=== PATIENT | male | born 2000 | race Caucasian/White ===

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

== ENCOUNTER 2018-04-02 08:00 | Inpatient (IN) | payer OTHER ==
[2018-04-02] MEDS: NS 1,000 ML IV ×3 (08:46→10:01)
[2018-04-02] MEDS: ONDANSETRON 4MG/2ML VIAL (J2405) IV (09:01)
[2018-04-02 09:02] LABS: VENOUS BASE EXCESS -28.2 (-2.0-2.0); VENOUS HCO3 3.5 MEQ/L (23.0-27.0); VENOUS O2 SATURATION 95.6 % (60.0-80.0); VENOUS PARTIAL PRESSURE CO2 17.7 mmHg (38.0-50.0); VENOUS PARTIAL PRESSURE O2 96.6 mmHg (30.0-50.0); VENOUS PH 6.908 UNITS (7.330-7.430); VENOUS STANDARD HCO3 6.2 MEQ/L
[2018-04-02 09:19] LABS: BASO # 0.1 10^3/uL (0.0-0.2); BASO % 0.8 % (0.0-1.0); HEMATOCRIT 45.8 % (42.0-52.0); HEMOGLOBIN 15.3 g/dl (13.5-17.5); IMMATURE GRANULOCYTE % 0.9 % (0-3.0); LYMPH # 2.1 10^3/uL (1.5-6.5); LYMPH % 16.4 % (24.0-44.0); MEAN CORPUSCULAR HEMOGLOBIN 30.9 pg (27.0-33.0); MEAN CORPUSCULAR HGB CONC 33.4 g/dl (32.0-36.5); MEAN CORPUSCULAR VOLUME 92.5 fl (80.0-96.0); MONO # 0.8 10^3/uL (0.0-0.8); MONO % 6.6 % (0.0-5.0); NEUTROPHILS # 9.7 10^3/uL (1.8-7.7); NEUTROPHILS % 75.3 % (36.0-66.0); PLATELET COUNT, AUTOMATED 310 10^3/uL (150-450); RED BLOOD COUNT 4.95 10^6/uL (4.30-6.10); RED CELL DISTRIBUTION WIDTH 12.9 % (11.5-14.5); WHITE BLOOD COUNT 12.8 10^3/uL (4.0-10.0)
[2018-04-02 09:22] LABS: POS COUNT POS FLAG
[2018-04-02 09:36] LABS: ALBUMIN 3.5 GM/DL (3.2-5.2); ALBUMIN/GLOBULIN RATIO 0.74 (1.00-1.93); ALKALINE PHOSPHATASE 239 U/L (45-117); ALT/SGPT 18 U/L (12-78); ANION GAP 26 MEQ/L (8-16); AST/SGOT 12 U/L (7-37); BILIRUBIN,DIRECT < 0.1 MG/DL (0.0-0.2); BILIRUBIN,TOTAL 0.4 MG/DL (0.2-1.0); BLOOD UREA NITROGEN 12 MG/DL (7-18); CALCIUM LEVEL 8.4 MG/DL (8.5-10.1); CARBON DIOXIDE LEVEL 5 MEQ/L (21-32); CHLORIDE LEVEL 104 MEQ/L (98-107); CREATININE FOR GFR 1.11 MG/DL (0.70-1.30); LIPASE 112 U/L (73-393); POTASSIUM SERUM 4.6 MEQ/L (3.5-5.1); SODIUM LEVEL 135 MEQ/L (136-145); TOTAL PROTEIN 8.2 GM/DL (6.4-8.2)
[2018-04-02] MEDS ORDERED: NS 1,000 ML IV (09:45)
[2018-04-02] MEDS: INSULIN HUMAN REGULAR 100 UNITS in NS 99 ML IV ×2 (09:48→15:36)
[2018-04-02 09:52] LABS: BEDSIDE GLUCOSE 483 MG/DL (70-105)
[2018-04-02 09:52] LABS: SALICYLATE LEVEL 5.2 MG/DL (5.0-30.0)
[2018-04-02 09:52] LABS: ETHYL ALCOHOL (ETHANOL) < 0.003 % (0.000-0.010)
[2018-04-02 09:53] LABS: GLUCOSE, FASTING 461 MG/DL (70-100)
[2018-04-02 09:54] LABS: ACETAMINOPHEN LEVEL < 2.0 UG/ML (10.0-30.0)
[2018-04-02] MEDS: METOCLOPRAMIDE INJ 10MG/2ML VIAL (J2765) IV ×2 (10:01→19:38)
[2018-04-02] MEDS ORDERED: ISOVUE-370 76% 100ML VIAL (Q9967) As Ordered (10:14)
[2018-04-02 10:41] LABS: CK-MB VALUE MASS < 1.0 NG/ML (<3.6); CPK CREATINE PHOSPHOKINASE 48 U/L (39-308); MB/CK RELATIVE INDEX 2.08 (< OR =4); TROPONIN I < 0.02 NG/ML (< 0.10)
[2018-04-02 10:47] LABS: BEDSIDE GLUCOSE 416 MG/DL (70-105)
[2018-04-02 11:25] LABS: APPEARANCE, URINE CLEAR (CLEAR); BACTERIA, URINE AUTO NEGATIVE (NEGATIVE); BILIRUBIN, URINE AUTO NEGATIVE (NEGATIVE); BLOOD, URINE BLOOD 1+ (NEGATIVE); COLOR, URINE STRAW (YELLOW); GLUCOSE, URINE (UA) AUTO 3+ mg/dL (NEGATIVE); KETONE, URINE AUTO 2+ mg/dL (NEGATIVE); LEUKOCYTE ESTERASE, URINE AUTO NEGATIVE (NEGATIVE); MUCUS, URINE SMALL (NEGATIVE); NITRITE, URINE AUTO NEGATIVE (NEGATIVE); PROTEIN, URINE AUTO 1+ mg/dL (NEGATIVE); RBC, URINE AUTO 6 /HPF (0-3); SPECIFIC GRAVITY URINE AUTO 1.022 (1.002-1.035); SQUAMOUS EPITHELIAL CELL UR AU 0 /HPF (0-6); UROBILINOGEN, URINE AUTO 0.2 mg/dL (0.0-2.0); WBC, URINE AUTO 0 /HPF (0-3)
[2018-04-02 11:46] LABS: AMPHETAMINES LEVEL URINE NEGATIVE (NEGATIVE); BARBITURATES URINE NEGATIVE (NEGATIVE); BENZODIAZEPINES URINE NEGATIVE (NEGATIVE); CANNABINOIDS URINE NEGATIVE (NEGATIVE); COCAINE METABOLITE URINE NEGATIVE (NEGATIVE); METHADONE URINE NEGATIVE (NEGATIVE); OPIATES URINE NEGATIVE (NEGATIVE); PHENCYCLIDINE URINE NEGATIVE (NEGATIVE)
[2018-04-02 12:18] LABS: BEDSIDE GLUCOSE 303 MG/DL (70-105)
[2018-04-02] MEDS: KCL 20MEQ in NS 1000ML 1,000 ML IV (13:00)
[2018-04-02 13:37] LABS: MAGNESIUM LEVEL 2.4 MG/DL (1.8-2.4)
[2018-04-02 14:08] LABS: BEDSIDE GLUCOSE 209 MG/DL (70-105)
[2018-04-02 14:43] LABS: ANION GAP 23 MEQ/L (8-16); BLOOD UREA NITROGEN 11 MG/DL (7-18); CALCIUM LEVEL 8.4 MG/DL (8.5-10.1); CARBON DIOXIDE LEVEL 5 MEQ/L (21-32); CHLORIDE LEVEL 113 MEQ/L (98-107); CREATININE FOR GFR 0.81 MG/DL (0.70-1.30); GLUCOSE, FASTING 207 MG/DL (70-100); POTASSIUM SERUM 4.1 MEQ/L (3.5-5.1); SODIUM LEVEL 141 MEQ/L (136-145)
[2018-04-02] MEDS ORDERED: INSULIN HUMAN REGULAR 100 UNITS in NS 99 ML IV (15:00)
[2018-04-02 15:05] LABS: BEDSIDE GLUCOSE 167 MG/DL (70-105)
[2018-04-02] MEDS: D5W/0.45% SODIUM CHLORIDE 1,000 ML IV (15:08)
[2018-04-02] MEDS ORDERED: INSULIN IV RATE CHANGE DOCUMENTATION ML/HR XX (15:15)
[2018-04-02 16:12] LABS: BEDSIDE GLUCOSE 198 MG/DL (70-105)
[2018-04-02] MEDS: ENOXAPARIN 40 MG/0.4 ML SYRINGE (J1650) SC (16:56)
[2018-04-02 17:03] LABS: BEDSIDE GLUCOSE 190 MG/DL (70-105)
[2018-04-02 17:23] LABS: ANION GAP 20 MEQ/L (8-16); BLOOD UREA NITROGEN 9 MG/DL (7-18); CALCIUM LEVEL 8.2 MG/DL (8.5-10.1); CARBON DIOXIDE LEVEL 6 MEQ/L (21-32); CHLORIDE LEVEL 115 MEQ/L (98-107); CREATININE FOR GFR 0.86 MG/DL (0.70-1.30); GLUCOSE, FASTING 209 MG/DL (70-100); SODIUM LEVEL 141 MEQ/L (136-145)
[2018-04-02 18:08] LABS: BEDSIDE GLUCOSE 191 MG/DL (70-105)
[2018-04-02] MEDS: KETOROLAC TROMETHAMINE 10 MG TAB PO (19:32)
[2018-04-02 19:39] LABS: BEDSIDE GLUCOSE 182 MG/DL (70-105)
[2018-04-02 20:11] LABS: BEDSIDE GLUCOSE 189 MG/DL (70-105)
[2018-04-02 20:52] LABS: BEDSIDE GLUCOSE 193 MG/DL (70-105)
[2018-04-02 21:21] LABS: ANION GAP 15 MEQ/L (8-16); BLOOD UREA NITROGEN 8 MG/DL (7-18); CALCIUM LEVEL 8.2 MG/DL (8.5-10.1); CARBON DIOXIDE LEVEL 11 MEQ/L (21-32); CHLORIDE LEVEL 111 MEQ/L (98-107); CREATININE FOR GFR 0.81 MG/DL (0.70-1.30); GLUCOSE, FASTING 197 MG/DL (70-100); SODIUM LEVEL 137 MEQ/L (136-145)
[2018-04-02] MEDS ORDERED: GLUCOSE 4 GM CHEW TABLET PO (21:45)
[2018-04-02] MEDS ORDERED: GLUCAGON FOR INJ 1 MG VIAL (J1610) SC (21:45)
[2018-04-02] MEDS ORDERED: DEXTROSE 50% 50 ML SYRINGE IV (21:45)
[2018-04-02 22:03] LABS: BEDSIDE GLUCOSE 185 MG/DL (70-105)
[2018-04-02] MEDS: KCL 20MEQ IN D5/0.45NS 1000ML 1,000 ML IV (22:14)
[2018-04-02] MEDS: POTASSIUM CHLORIDE 10 MEQ SR TABLET PO (22:15)
[2018-04-02] MEDS: LEVEMIR (INSULIN DETEMIR) 1 UNITS/0.01ML SC (22:30)
[2018-04-02 23:00] LABS: BEDSIDE GLUCOSE 198 MG/DL (70-105)
[2018-04-03] MEDS: KCL 20MEQ in NS 1000ML 1,000 ML IV
[2018-04-03 00:09] LABS: BEDSIDE GLUCOSE 185 MG/DL (70-105)
[2018-04-03 00:55] LABS: ANION GAP 11 MEQ/L (8-16); BLOOD UREA NITROGEN 7 MG/DL (7-18); CALCIUM LEVEL 8.4 MG/DL (8.5-10.1); CARBON DIOXIDE LEVEL 14 MEQ/L (21-32); CHLORIDE LEVEL 112 MEQ/L (98-107); CREATININE FOR GFR 0.81 MG/DL (0.70-1.30); GLUCOSE, FASTING 184 MG/DL (70-100); POTASSIUM SERUM 3.3 MEQ/L (3.5-5.1); SODIUM LEVEL 137 MEQ/L (136-145)
[2018-04-03] MEDS: KCL 10MEQ/100ML SWI (KRUN) 10 MEQ in APPROPRIATE DILUENT 1 EA IV ×2 (01:17→02:13)
[2018-04-03 02:20] LABS: ANION GAP 10 MEQ/L (8-16); BLOOD UREA NITROGEN 8 MG/DL (7-18); CALCIUM LEVEL 8.4 MG/DL (8.5-10.1); CARBON DIOXIDE LEVEL 14 MEQ/L (21-32); CHLORIDE LEVEL 113 MEQ/L (98-107); CREATININE FOR GFR 0.69 MG/DL (0.70-1.30); GLUCOSE, FASTING 140 MG/DL (70-100); POTASSIUM SERUM 3.8 MEQ/L (3.5-5.1); SODIUM LEVEL 137 MEQ/L (136-145)
[2018-04-03] MEDS: NS 1,000 ML IV (03:15)
[2018-04-03 05:30] LABS: HEMATOCRIT 37.8 % (42.0-52.0); MEAN CORPUSCULAR HEMOGLOBIN 30.6 pg (27.0-33.0); MEAN CORPUSCULAR HGB CONC 34.1 g/dl (32.0-36.5); MEAN CORPUSCULAR VOLUME 89.8 fl (80.0-96.0); PLATELET COUNT, AUTOMATED 288 10^3/uL (150-450); RED BLOOD COUNT 4.21 10^6/uL (4.30-6.10); RED CELL DISTRIBUTION WIDTH 13.2 % (11.5-14.5); WHITE BLOOD COUNT 7.3 10^3/uL (4.0-10.0)
[2018-04-03 05:37] LABS: ANION GAP 11 MEQ/L (8-16); BLOOD UREA NITROGEN 7 MG/DL (7-18); CALCIUM LEVEL 8.1 MG/DL (8.5-10.1); CARBON DIOXIDE LEVEL 13 MEQ/L (21-32); CHLORIDE LEVEL 116 MEQ/L (98-107); CREATININE FOR GFR 0.62 MG/DL (0.70-1.30); GLUCOSE, FASTING 115 MG/DL (70-100); POTASSIUM SERUM 3.3 MEQ/L (3.5-5.1); SODIUM LEVEL 140 MEQ/L (136-145)
[2018-04-03 05:42] LABS: HEMOGLOBIN 12.9 g/dl (13.5-17.5)
[2018-04-03] MEDS: POTASSIUM CHLORIDE 10 MEQ SR TABLET PO ×2 (06:30→14:11)
[2018-04-03] MEDS: HumaLOG INSULIN (NovoLOG) PER UNIT SC ×4 (07:48→20:32)
[2018-04-03] MEDS: ENOXAPARIN 40 MG/0.4 ML SYRINGE (J1650) SC (07:49)
[2018-04-03 09:01] LABS: FREE T4 0.79 NG/DL (0.78-1.33)
[2018-04-03 11:21] LABS: BEDSIDE GLUCOSE 324 MG/DL (70-105)
[2018-04-03 13:02] LABS: ANION GAP 13 MEQ/L (8-16); BLOOD UREA NITROGEN 10 MG/DL (7-18); CALCIUM LEVEL 8.2 MG/DL (8.5-10.1); CARBON DIOXIDE LEVEL 15 MEQ/L (21-32); CHLORIDE LEVEL 108 MEQ/L (98-107); CREATININE FOR GFR 0.75 MG/DL (0.70-1.30); GLUCOSE, FASTING 242 MG/DL (70-100); POTASSIUM SERUM 3.1 MEQ/L (3.5-5.1); SODIUM LEVEL 136 MEQ/L (136-145)
[2018-04-03 16:45] LABS: BEDSIDE GLUCOSE 275 MG/DL (70-105)
[2018-04-03 20:25] LABS: BEDSIDE GLUCOSE 287 MG/DL (70-105)
[2018-04-03] MEDS: LEVEMIR (INSULIN DETEMIR) 1 UNITS/0.01ML SC (20:33)
[2018-04-03] MEDS: ACETAMINOPHEN TAB 650MG DOSE (2X325MG) PO (21:29)
[2018-04-04 05:49] LABS: HEMATOCRIT 34.4 % (42.0-52.0); HEMOGLOBIN 12.4 g/dl (13.5-17.5); MEAN CORPUSCULAR HEMOGLOBIN 30.7 pg (27.0-33.0); MEAN CORPUSCULAR VOLUME 85.1 fl (80.0-96.0); PLATELET COUNT, AUTOMATED 264 10^3/uL (150-450); RED BLOOD COUNT 4.04 10^6/uL (4.30-6.10); RED CELL DISTRIBUTION WIDTH 12.9 % (11.5-14.5); WHITE BLOOD COUNT 5.9 10^3/uL (4.0-10.0)
[2018-04-04 06:02] LABS: BLOOD UREA NITROGEN 12 MG/DL (7-18); CALCIUM LEVEL 8.8 MG/DL (8.5-10.1); CARBON DIOXIDE LEVEL 29 MEQ/L (21-32); CHLORIDE LEVEL 107 MEQ/L (98-107); CREATININE FOR GFR 0.51 MG/DL (0.70-1.30); GLUCOSE, FASTING 131 MG/DL (70-100)
[2018-04-04 06:12] LABS: ANION GAP 9 MEQ/L (8-16)
[2018-04-04 06:19] LABS: SODIUM LEVEL 145 MEQ/L (136-145)
[2018-04-04 06:20] LABS: POTASSIUM SERUM 2.8 MEQ/L (3.5-5.1)
[2018-04-04] MEDS: KCL 10MEQ/100ML SWI (KRUN) 10 MEQ in APPROPRIATE DILUENT 1 EA IV (06:43)
[2018-04-04] MEDS: POTASSIUM CHLORIDE 10 MEQ SR TABLET PO ×3 (06:43→10:46)
[2018-04-04 07:04] LABS: BEDSIDE GLUCOSE 89 MG/DL (70-105)
[2018-04-04 07:21] LABS: MAGNESIUM LEVEL 2.1 MG/DL (1.8-2.4)
[2018-04-04] MEDS: HumaLOG INSULIN (NovoLOG) PER UNIT SC ×2 (07:30→12:40)
[2018-04-04] MEDS: ENOXAPARIN 40 MG/0.4 ML SYRINGE (J1650) SC (08:55)
[2018-04-04] MEDS ORDERED: POTASSIUM CHLORIDE 10 MEQ SR TABLET PO (12:00)
[2018-04-04 12:30] LABS: ANION GAP 12 MEQ/L (8-16); BLOOD UREA NITROGEN 11 MG/DL (7-18); CALCIUM LEVEL 8.5 MG/DL (8.5-10.1); CARBON DIOXIDE LEVEL 25 MEQ/L (21-32); CHLORIDE LEVEL 102 MEQ/L (98-107); CREATININE FOR GFR 0.68 MG/DL (0.70-1.30); GLUCOSE, FASTING 344 MG/DL (70-100); POTASSIUM SERUM 3.8 MEQ/L (3.5-5.1); SODIUM LEVEL 139 MEQ/L (136-145)
== END 2018-04-04 12:55 | disposition home or self-care (01) | DRG 420 ==
LOC: M PED 04-03 15:02 → M ED 08:00 → M ED INP 12:47 → M ICU 16:25
DX: E10.10 Type 1 diabetes mellitus with ketoacidosis without coma (principal); E03.9 Hypothyroidism, unspecified; E87.6 Hypokalemia; D72.829 Elevated white blood cell count, unspecified; Z79.4 Long term (current) use of insulin; Z79.899 Other long term (current) drug therapy; Z88.0 Allergy status to penicillin; Z88.8 Allergy status to other drugs, medicaments and biological substances; Z91.14 Patient's other noncompliance with medication regimen

== ENCOUNTER 2018-10-20 15:46 | Emergency (ER) | payer OTHER ==
[~2018-10-20] VITALS: Ht 165.1 cm; Wt 54.5 kg
[~2018-10-20 15:46] MED LIST changes: +DRIS50003 PO; +TOUJ1.2I SC
[2018-10-20] MEDS ORDERED: LIDOCAINE 1% MDV 20ML VIAL IM ONE (18:00)
[2018-10-20] MEDS ORDERED: TRAM50TA2 PO ×2 (18:36→18:48)
[2018-10-20] MEDS ORDERED: BACT800T5 PO ×2 (18:36→18:48)
[2018-10-20] MEDS ORDERED: IBUP-1022 PO ×2 (18:36→18:48)
[2018-10-20 18:43] VITALS: BP 141/80
[2018-10-20] MEDS ORDERED: traMADol 50 MG TAB PO ONE (18:45)
[2018-10-20] MEDS ORDERED: IBUPROFEN 600 MG TAB PO ONE (18:45)
== END 2018-10-20 18:53 | disposition home or self-care (01) ==
LOC: M ED 15:46
DX: K61.0 Anal abscess (principal); E11.9 Type 2 diabetes mellitus without complications; J45.909 Unspecified asthma, uncomplicated; E05.90 Thyrotoxicosis, unspecified without thyrotoxic crisis or storm; Z88.0 Allergy status to penicillin; Z88.8 Allergy status to other drugs, medicaments and biological substances; Z79.899 Other long term (current) drug therapy; Z79.4 Long term (current) use of insulin

== ENCOUNTER → 2018-10-30 | Outpatient (REF) | payer OTHER ==
[~2018-10-30] MED LIST changes: +BACT800T5 PO; +IBUP-1022 PO; +TRAM50TA2 PO
[2018-10-30 18:23] LABS: BASO # 0.1 10^3/uL (0.0-0.2); EOS % 0.5 % (0.0-3.0); HEMATOCRIT 43.1 % (42.0-52.0); HEMOGLOBIN 14.8 g/dl (13.5-17.5); LYMPH # 2.5 10^3/uL (1.5-6.5); LYMPH % 30.7 % (24.0-44.0); MEAN CORPUSCULAR HEMOGLOBIN 29.7 pg (27.0-33.0); MEAN CORPUSCULAR HGB CONC 34.3 g/dl (32.0-36.5); MEAN CORPUSCULAR VOLUME 86.5 fl (80.0-96.0); MONO # 0.6 10^3/uL (0.0-0.8); MONO % 6.7 % (0.0-5.0); NEUTROPHILS % 60.9 % (36.0-66.0); PLATELET COUNT, AUTOMATED 367 10^3/uL (150-450); RED BLOOD COUNT 4.98 10^6/uL (4.30-6.10); WHITE BLOOD COUNT 8.2 10^3/uL (4.0-10.0)
[2018-10-30 18:55] LABS: APPEARANCE, URINE CLEAR (CLEAR); BACTERIA, URINE AUTO NEGATIVE (NEGATIVE); BILIRUBIN, URINE AUTO NEGATIVE (NEGATIVE); BLOOD, URINE BLOOD NEGATIVE (NEGATIVE); COLOR, URINE YELLOW (YELLOW); GLUCOSE, URINE (UA) AUTO 3+ mg/dL (NEGATIVE); KETONE, URINE AUTO 2+ mg/dL (NEGATIVE); LEUKOCYTE ESTERASE, URINE AUTO TRACE (NEGATIVE); MUCUS, URINE SMALL (NEGATIVE); NITRITE, URINE AUTO NEGATIVE (NEGATIVE); PROTEIN, URINE AUTO NEGATIVE (NEGATIVE); RBC, URINE AUTO 0 /HPF (0-3); SPECIFIC GRAVITY URINE AUTO 1.037 (1.002-1.035); SQUAMOUS EPITHELIAL CELL UR AU 1 /HPF (0-6); UROBILINOGEN, URINE AUTO 0.2 mg/dL (0.0-2.0); WBC, URINE AUTO 1 /HPF (0-3)
[2018-10-30 18:56] LABS: ALT/SGPT 20 U/L (12-78); BLOOD UREA NITROGEN 10 MG/DL (7-18); CALCIUM LEVEL 8.3 MG/DL (8.5-10.1); CARBON DIOXIDE LEVEL 23 MEQ/L (21-32); CHLORIDE LEVEL 103 MEQ/L (98-107); CREATININE FOR GFR 0.52 MG/DL (0.70-1.30); GLUCOSE, FASTING 186 MG/DL (70-100); POTASSIUM SERUM 3.9 MEQ/L (3.5-5.1); SODIUM LEVEL 137 MEQ/L (136-145)
[2018-10-30 18:57] LABS: ALBUMIN 3.5 GM/DL (3.2-5.2); BILIRUBIN,TOTAL 0.3 MG/DL (0.2-1.0); CHOLESTEROL LEVEL 203 MG/DL (<200); CHOLESTEROL RISK RATIO 4.142 (<5); HDL CHOLESTEROL 49 MG/DL (>40); LDL CHOLESTEROL 131 MG/DL (<100); NON-HDL-C 154 MG/DL; TOTAL 25(OH) VITAMIN D 26.5 NG/ML (30.0-100.0); TOTAL PROTEIN 7.4 GM/DL (6.4-8.2); TRIGLYCERIDES LEVEL 117 MG/DL (<150)
[2018-10-30 19:01] LABS: HEMOGLOBIN A1c 12.4 %
[2018-10-30 19:12] LABS: CREATININE, URINE 65.3 MG/DL; MALB URINE SIEMENS 19.5 MG/L; MAU/CREAT RATIO 29.8 MCG/MG (0.0-30.0)
[2018-11-03 00:07] LABS: Lyme Disease IgG/IgM Antibodie <0.91 ISR (0.00-0.90); Lyme Disease IgM Ab Quantitati <0.80 index (0.00-0.79)
== END ==
LOC: M LAB REF 16:33
PROVIDERS: ATTEND Family Medicine
DX: E11.9 Type 2 diabetes mellitus without complications (principal); M25.50 Pain in unspecified joint

== ENCOUNTER → 2019-05-21 | Outpatient (REF) | payer OTHER, MEDICAID ==
[2019-05-21 14:08] LABS: ALBUMIN 3.7 GM/DL (3.2-5.2); ALT/SGPT 50 U/L (12-78); BILIRUBIN,TOTAL 0.3 MG/DL (0.2-1.0); BLOOD UREA NITROGEN 17 MG/DL (7-18); CALCIUM LEVEL 10.1 MG/DL (8.5-10.1); CARBON DIOXIDE LEVEL 24 MEQ/L (21-32); CHLORIDE LEVEL 101 MEQ/L (98-107); CHOLESTEROL LEVEL 169 MG/DL (<200); CHOLESTEROL RISK RATIO 2.725 (<5); GLOMERULAR FILTRATION RATE > 60.0 (>60); GLUCOSE, FASTING 111 MG/DL (70-100); HDL CHOLESTEROL 62 MG/DL (>40); LDL CHOLESTEROL 60 MG/DL (<100); NON-HDL-C 107 MG/DL; SODIUM LEVEL 139 MEQ/L (136-145); TOTAL PROTEIN 7.8 GM/DL (6.4-8.2); TRIGLYCERIDES LEVEL 235 MG/DL (<150)
[2019-05-21 14:15] LABS: HEMOGLOBIN A1c 11.5 %
== END ==
LOC: M LAB REF 12:01
PROVIDERS: ATTEND Family Medicine
DX: E11.9 Type 2 diabetes mellitus without complications (principal)

== ENCOUNTER → 2019-11-01 | Outpatient (REF) | payer OTHER, MEDICAID ==
[2019-11-01 11:32] LABS: BASO # 0.1 10^3/uL (0.0-0.2); BASO % 0.7 % (0.0-1.0); EOS # 0.1 10^3/uL (0.0-0.5); EOS % 0.9 % (0.0-3.0); HEMATOCRIT 41.7 % (42.0-52.0); HEMOGLOBIN 13.7 g/dl (13.5-17.5); LYMPH # 3.5 10^3/uL (1.5-5.0); MEAN CORPUSCULAR HEMOGLOBIN 29.7 pg (27.0-33.0); MEAN CORPUSCULAR HGB CONC 32.9 g/dl (32.0-36.5); MEAN CORPUSCULAR VOLUME 90.5 fl (80.0-96.0); MONO # 0.5 10^3/uL (0.0-0.8); MONO % 6.3 % (0.0-5.0); NEUTROPHILS # 4.3 10^3/uL (1.5-8.5); NEUTROPHILS % 50.7 % (36.0-66.0); PLATELET COUNT, AUTOMATED 307 10^3/uL (150-450); RED BLOOD COUNT 4.61 10^6/uL (4.30-6.10); WHITE BLOOD COUNT 8.6 10^3/uL (4.0-10.0)
[2019-11-01 11:58] LABS: ALBUMIN 3.5 GM/DL (3.2-5.2); ALT/SGPT 36 U/L (12-78); BILIRUBIN,TOTAL 0.1 MG/DL (0.2-1.0); BLOOD UREA NITROGEN 11 MG/DL (7-18); CALCIUM LEVEL 9.2 MG/DL (8.5-10.1); CARBON DIOXIDE LEVEL 28 MEQ/L (21-32); CHLORIDE LEVEL 105 MEQ/L (98-107); CHOLESTEROL LEVEL 189 MG/DL (<200); CHOLESTEROL RISK RATIO 2.863 (<5); CREATININE FOR GFR 0.69 MG/DL (0.70-1.30); GLOMERULAR FILTRATION RATE > 60.0 (>60); GLUCOSE, FASTING 222 MG/DL (70-100); HDL CHOLESTEROL 66 MG/DL (>40); LDL CHOLESTEROL 99 MG/DL (<100); NON-HDL-C 123 MG/DL; POTASSIUM SERUM 3.6 MEQ/L (3.5-5.1); SODIUM LEVEL 140 MEQ/L (136-145); TOTAL 25(OH) VITAMIN D 30.6 NG/ML (30.0-100.0); TOTAL PROTEIN 6.9 GM/DL (6.4-8.2); TRIGLYCERIDES LEVEL 122 MG/DL (<150)
[2019-11-01 13:14] LABS: HEMOGLOBIN A1c 12.6 %
== END ==
LOC: M LAB REF 10:56
PROVIDERS: ATTEND Nurse Practitioner Family
DX: G25.81 Restless legs syndrome (principal); E16.2 Hypoglycemia, unspecified; E11.9 Type 2 diabetes mellitus without complications; M25.50 Pain in unspecified joint

== ENCOUNTER → 2020-03-01 | Outpatient (REF) | payer OTHER ==
[~2020-03-01] MED LIST changes: +ADME100I SQ; +BASA100I SQ; +GABA-843 PO
[2020-03-01 16:28] LABS: CREATININE, URINE 44.5 MG/DL; MALB URINE SIEMENS 6.7 MG/L
== END ==
LOC: M LAB REF 15:11
PROVIDERS: ATTEND Nurse Practitioner Family
DX: E13.9 Other specified diabetes mellitus without complications (principal)

== ENCOUNTER 2020-05-26 07:28 | Emergency (ER) | payer OTHER ==
[~2020-05-26] VITALS: Ht 167.6 cm; Wt 58.8 kg
[~2020-05-26 07:28] MED LIST changes: -ADME100I SQ; -BASA100I SQ; -GABA-843 PO
[2020-05-26] MEDS ORDERED: NS 1,000 ML IV ONE ×2 (07:45→11:15)
[2020-05-26] MEDS ORDERED: BASA100I SQ (08:00)
[2020-05-26] MEDS ORDERED: GABA-843 PO (08:00)
[2020-05-26] MEDS ORDERED: ADME100I SQ (08:03)
[2020-05-26] MEDS ORDERED: ONDANSETRON 4MG/2ML VIAL As Ordered ONE (08:07)
[2020-05-26 08:08] LABS: BASO # 0.1 10^3/uL (0.0-0.2); BASO % 0.5 % (0.0-1.0); EOS # 0.2 10^3/uL (0.0-0.5); EOS % 1.2 % (0.0-3.0); HEMATOCRIT 41.7 % (42.0-52.0); HEMOGLOBIN 13.4 g/dl (13.5-17.5); LYMPH # 2.6 10^3/uL (1.5-5.0); LYMPH % 16.7 % (24.0-44.0); MEAN CORPUSCULAR HEMOGLOBIN 28.3 pg (27.0-33.0); MEAN CORPUSCULAR HGB CONC 32.1 g/dl (32.0-36.5); MEAN CORPUSCULAR VOLUME 88.2 fl (80.0-96.0); MONO # 0.8 10^3/uL (0.0-0.8); MONO % 5.3 % (0.0-5.0); NEUTROPHILS # 11.8 10^3/uL (1.5-8.5); NEUTROPHILS % 75.8 % (36.0-66.0); PLATELET COUNT, AUTOMATED 373 10^3/uL (150-450); RED BLOOD COUNT 4.73 10^6/uL (4.30-6.10); WHITE BLOOD COUNT 15.6 10^3/uL (4.0-10.0)
[2020-05-26] MEDS ORDERED: ONDANSETRON 4MG/2ML VIAL IV ONE (08:15)
[2020-05-26 08:40] LABS: ALBUMIN 3.5 GM/DL (3.2-5.2); ALT/SGPT 19 U/L (12-78); BILIRUBIN,DIRECT < 0.1 MG/DL (0.0-0.2); BILIRUBIN,TOTAL 0.3 MG/DL (0.2-1.0); LIPASE 215 U/L (73-393); TOTAL PROTEIN 7.2 GM/DL (6.4-8.2)
[2020-05-26] MEDS ORDERED: HALOPERIDOL 5MG/ML VIAL (J1630 PER 1) IV ONE ×2 (08:45→12:00)
[2020-05-26 10:23] LABS: AMPHETAMINES LEVEL URINE NEGATIVE (NEGATIVE); BARBITURATES URINE NEGATIVE (NEGATIVE); BENZODIAZEPINES URINE NEGATIVE (NEGATIVE); CANNABINOIDS URINE POSITIVE (NEGATIVE); COCAINE METABOLITE URINE NEGATIVE (NEGATIVE); METHADONE URINE NEGATIVE (NEGATIVE); OPIATES URINE NEGATIVE (NEGATIVE); PHENCYCLIDINE URINE NEGATIVE (NEGATIVE)
[2020-05-26 14:48] LABS: VENOUS BASE EXCESS -5.8 (-2.0-2.0); VENOUS HCO3 19.4 MEQ/L (23.0-27.0); VENOUS PARTIAL PRESSURE CO2 37.2 mmHg (38.0-50.0); VENOUS PARTIAL PRESSURE O2 74.2 mmHg (30.0-50.0); VENOUS PH 7.335 UNITS (7.330-7.430); VENOUS STANDARD HCO3 19.7 MEQ/L; VENOUS TOTAL CO2 20.5 MEQ/L (24.0-28.0)
[2020-05-26 15:18] LABS: BLOOD UREA NITROGEN 7 MG/DL (7-18); CALCIUM LEVEL 8.8 MG/DL (8.5-10.1); CARBON DIOXIDE LEVEL 23 MEQ/L (21-32); CHLORIDE LEVEL 108 MEQ/L (98-107); GLOMERULAR FILTRATION RATE > 60.0 (>60); GLUCOSE, FASTING 306 MG/DL (70-100); POTASSIUM SERUM 4.4 MEQ/L (3.5-5.1); SODIUM LEVEL 140 MEQ/L (136-145)
[2020-05-26 15:55] VITALS: BP 117/62
== END 2020-05-26 15:51 | disposition home or self-care (01) ==
LOC: M ED 07:28
DX: T40.7X1A Poisoning by cannabis (derivatives), accidental (unintentional), initial encounter (principal); R11.10 Vomiting, unspecified; E10.65 Type 1 diabetes mellitus with hyperglycemia; Z79.4 Long term (current) use of insulin; Z88.0 Allergy status to penicillin; Z88.8 Allergy status to other drugs, medicaments and biological substances
CPT/HCPCS: 36600; 80047; 80048; 80076; 80307; 81001; 82803; 83605; 83690; 85025; 93041; 96361; 96374; 96375; 96376; 99285; J1630; J2405

== ENCOUNTER → 2020-12-25 | Outpatient (REF) | payer OTHER ==
[~2020-12-25] MED LIST changes: +ADME100I SQ; +BASA100I SQ; +GABA-282 PO
[2020-12-25 18:03] LABS: ALBUMIN 3.9 GM/DL (3.2-5.2); ALT/SGPT 24 U/L (12-78); BILIRUBIN,TOTAL 0.2 MG/DL (0.2-1.0); BLOOD UREA NITROGEN 18 MG/DL (7-18); CALCIUM LEVEL 9.8 MG/DL (8.5-10.1); CARBON DIOXIDE LEVEL 31 MEQ/L (21-32); CHLORIDE LEVEL 106 MEQ/L (98-107); CHOLESTEROL LEVEL 130 MG/DL (<200); CHOLESTEROL RISK RATIO 2.407 (<5); CREATININE FOR GFR 0.82 MG/DL (0.70-1.30); GLOMERULAR FILTRATION RATE > 60.0 (>60); GLUCOSE, FASTING 45 MG/DL (70-100); HDL CHOLESTEROL 54 MG/DL (>40); LDL CHOLESTEROL 59 MG/DL (<100); NON-HDL-C 76 MG/DL; POTASSIUM SERUM 4.9 MEQ/L (3.5-5.1); SODIUM LEVEL 142 MEQ/L (136-145); TOTAL PROTEIN 7.6 GM/DL (6.4-8.2); TRIGLYCERIDES LEVEL 86 MG/DL (<150)
[2020-12-25 19:32] LABS: HEMOGLOBIN A1c 5.8 %
== END ==
LOC: M LAB REF 16:44
PROVIDERS: ATTEND Family Medicine Addiction Medicine
DX: E11.9 Type 2 diabetes mellitus without complications (principal)

== ENCOUNTER 2021-07-25 19:14 | Emergency (ER) | payer OTHER ==
[~2021-07-25] VITALS: Ht 167.6 cm; Wt 54.0 kg
[2021-07-25 19:15] VITALS: BP 115/65
[2021-07-25] MEDS ORDERED: GLUC1KIT (19:25)
== END 2021-07-25 20:57 | disposition left against medical advice (07) ==
LOC: M ED 19:14
DX: Z53.21 Procedure and treatment not carried out due to patient leaving prior to being seen by health care provider (principal)

== ENCOUNTER 2022-11-15 10:44 | Inpatient (IN) | payer OTHER ==
[2022-11-15] VITALS (7 sets, daily range): BP systolic 109–148; BP diastolic 59–83
[~2022-11-15] VITALS: Ht 167.6 cm; Wt 55.2 kg
[~2022-11-15 10:44] MED LIST changes: +GLUC1KIT; +PANTOPRAZOLE 40MG VIAL IV SCH
[2022-11-15] MEDS ORDERED: NS 1,000 ML IV ONE ×2 (11:00→12:20)
[2022-11-15] MEDS ORDERED: ONDANSETRON 4MG 2ML VIAL IV ONE (11:05)
[2022-11-15 11:27] LABS: VENOUS BASE EXCESS -17.2 (-2.0-2.0); VENOUS O2 SATURATION 81.8 % (60.0-80.0); VENOUS PARTIAL PRESSURE CO2 34.5 mmHg (38.0-50.0); VENOUS PARTIAL PRESSURE O2 56.1 mmHg (30.0-50.0); VENOUS PH 7.123 UNITS (7.330-7.430); VENOUS STANDARD HCO3 11.6 MEQ/L; VENOUS TOTAL CO2 12.1 MEQ/L (24.0-28.0)
[2022-11-15 11:28] LABS: BASO % 0.1 % (0.0-1.0); HEMATOCRIT 42.3 % (42.0-52.0); HEMOGLOBIN 13.5 g/dl (13.5-17.5); LYMPH # 0.8 10^3/uL (1.5-5.0); LYMPH % 4.3 % (24.0-44.0); MEAN CORPUSCULAR HEMOGLOBIN 28.5 pg (27.0-33.0); MEAN CORPUSCULAR HGB CONC 31.9 g/dl (32.0-36.5); MEAN CORPUSCULAR VOLUME 89.4 fl (80.0-96.0); MONO # 0.4 10^3/uL (0.0-0.8); MONO % 2.2 % (2.0-8.0); NEUTROPHILS # 16.6 10^3/uL (1.5-8.5); NEUTROPHILS % 92.5 % (36.0-66.0); PLATELET COUNT, AUTOMATED 357 10^3/uL (150-450); RED BLOOD COUNT 4.73 10^6/uL (4.30-6.10); WHITE BLOOD COUNT 17.9 10^3/uL (4.0-10.0)
[2022-11-15 11:43] LABS: HEMOGLOBIN A1c 12.2 % (4.0-6.0)
[2022-11-15 11:54] LABS: LIPASE 30 U/L (12-53)
[2022-11-15 11:55] LABS: ETHYL ALCOHOL (ETHANOL) 0.003 % (0.000-0.010)
[2022-11-15 12:00] LABS: OSMOLALITY SERUM 311 MOSM/KG (275-295); RSV AMPLIFICATION NEGATIVE (NEGATIVE)
[2022-11-15 12:02] LABS: ACETONE/KETONE > 4.50 MMOL/L (0.02-0.27); ALBUMIN 3.9 G/DL (3.2-5.2); ALKALINE PHOSPHATASE 181 U/L (46-116); ALT/SGPT 43 U/L (7.0-40); AST/SGOT 34 U/L (<34); BILIRUBIN,DIRECT 0.2 MG/DL (<0.4); BILIRUBIN,TOTAL 0.6 MG/DL (0.3-1.2); BLOOD UREA NITROGEN 15 MG/DL (9-23); CALCIUM LEVEL 9.3 MG/DL (8.5-10.1); CARBON DIOXIDE LEVEL 12 MMOL/L (20-31); CHLORIDE LEVEL 99 MMOL/L (98-107); CREATININE FOR GFR 0.54 MG/DL (0.70-1.30); GLOMERULAR FILTRATION RATE > 60.0 (>60); GLUCOSE, FASTING 492 MG/DL (60-100); PHOSPHORUS LEVEL 5.6 MG/DL (2.5-4.9); POTASSIUM SERUM 5.6 MMOL/L (3.5-5.1); SODIUM LEVEL 133 MMOL/L (136-145); TOTAL PROTEIN 7.8 G/DL (5.7-8.2)
[2022-11-15 12:07] LABS: AMPHETAMINES LEVEL URINE NEGATIVE (NEGATIVE); BARBITURATES URINE NEGATIVE (NEGATIVE); BENZODIAZEPINES URINE NEGATIVE (NEGATIVE); CANNABINOIDS URINE NEGATIVE (NEGATIVE); COCAINE METABOLITE URINE NEGATIVE (NEGATIVE); METHADONE URINE NEGATIVE (NEGATIVE); OPIATES URINE NEGATIVE (NEGATIVE); PHENCYCLIDINE URINE NEGATIVE (NEGATIVE)
[2022-11-15] MEDS ORDERED: HumuLIN R (REGULAR) INSULIN (NovoLIN R) **100U/ML** PER UNIT IV ONE (12:15)
[2022-11-15] MEDS ORDERED: INSULIN IV RATE CHANGE DOCUMENTATION ML/HR XX SCH (12:15)
[2022-11-15] MEDS ORDERED: INSULIN REGULAR IN 0.9 % NACL 100 UNIT in IV 1 EA IV SCH ×4 (12:15→13:20)
[2022-11-15] MEDS ORDERED: ISOVUE-370 76% 100ML VIAL As Ordered ONE (12:34)
[2022-11-15] MEDS ORDERED: HOME MED LIST COMPLETE! XX SCH (13:00)
[2022-11-15] MEDS ORDERED: NS 1,000 ML IV SCH (13:20)
[2022-11-15 14:12] LABS: VENOUS BASE EXCESS -22.6 (-2.0-2.0); VENOUS HCO3 7.4 MEQ/L (23.0-27.0); VENOUS O2 SATURATION 89.7 % (60.0-80.0); VENOUS PARTIAL PRESSURE CO2 29.5 mmHg (38.0-50.0); VENOUS PARTIAL PRESSURE O2 75.2 mmHg (30.0-50.0); VENOUS PH 7.016 UNITS (7.330-7.430); VENOUS STANDARD HCO3 8.7 MEQ/L; VENOUS TOTAL CO2 8.3 MEQ/L (24.0-28.0)
[2022-11-15 14:56] LABS: BLOOD UREA NITROGEN 17 MG/DL (9-23); CALCIUM LEVEL 8.7 MG/DL (8.5-10.1); CARBON DIOXIDE LEVEL < 10.0 MMOL/L (20-31); CHLORIDE LEVEL 105 MMOL/L (98-107); CREATININE FOR GFR 0.58 MG/DL (0.70-1.30); GLOMERULAR FILTRATION RATE > 60.0 (>60); GLUCOSE, FASTING 397 MG/DL (60-100); PHOSPHORUS LEVEL 4.5 MG/DL (2.5-4.9); POTASSIUM SERUM 5.1 MMOL/L (3.5-5.1); SODIUM LEVEL 135 MMOL/L (136-145)
[2022-11-15] MEDS: INSULIN IV RATE CHANGE DOCUMENTATION ML/HR XX SCH ×6 (15:06→21:43)
[2022-11-15 15:16] LABS: VENOUS HCO3 9.2 MEQ/L (23.0-27.0); VENOUS O2 SATURATION 85.6 % (60.0-80.0); VENOUS PARTIAL PRESSURE CO2 29.5 mmHg (38.0-50.0); VENOUS PARTIAL PRESSURE O2 60.1 mmHg (30.0-50.0); VENOUS STANDARD HCO3 10.5 MEQ/L; VENOUS TOTAL CO2 10.1 MEQ/L (24.0-28.0)
[2022-11-15 15:50] LABS: BLOOD UREA NITROGEN 15 MG/DL (9-23); CALCIUM LEVEL 8.5 MG/DL (8.5-10.1); CARBON DIOXIDE LEVEL 12 MMOL/L (20-31); CHLORIDE LEVEL 108 MMOL/L (98-107); CREATININE FOR GFR 0.59 MG/DL (0.70-1.30); GLOMERULAR FILTRATION RATE > 60.0 (>60); GLUCOSE, FASTING 286 MG/DL (60-100); PHOSPHORUS LEVEL 3.5 MG/DL (2.5-4.9); POTASSIUM SERUM 4.7 MMOL/L (3.5-5.1); SODIUM LEVEL 138 MMOL/L (136-145)
[2022-11-15] MEDS ORDERED: D5W/0.9% SODIUM CHLORIDE 1,000 ML IV SCH (17:05)
[2022-11-15] MEDS ORDERED: KETOROLAC 30 MG/ML 1ML VIAL IV ONE (18:35)
[2022-11-15] MEDS: ONDANSETRON 4MG 2ML VIAL IV PRN ×2 (18:55→22:49)
[2022-11-15 20:09] LABS: VENOUS BASE EXCESS -11.5 (-2.0-2.0); VENOUS HCO3 14.8 MEQ/L (23.0-27.0); VENOUS O2 SATURATION 99.1 % (60.0-80.0); VENOUS PARTIAL PRESSURE O2 166.9 mmHg (30.0-50.0); VENOUS PH 7.245 UNITS (7.330-7.430); VENOUS STANDARD HCO3 15.5 MEQ/L; VENOUS TOTAL CO2 15.9 MEQ/L (24.0-28.0)
[2022-11-15 20:44] LABS: BLOOD UREA NITROGEN 11 MG/DL (9-23); CALCIUM LEVEL 8.3 MG/DL (8.5-10.1); CARBON DIOXIDE LEVEL 16 MMOL/L (20-31); CHLORIDE LEVEL 111 MMOL/L (98-107); CREATININE FOR GFR 0.51 MG/DL (0.70-1.30); GLOMERULAR FILTRATION RATE > 60.0 (>60); GLUCOSE, FASTING 205 MG/DL (60-100); PHOSPHORUS LEVEL 2.1 MG/DL (2.5-4.9); POTASSIUM SERUM 4.3 MMOL/L (3.5-5.1); SODIUM LEVEL 138 MMOL/L (136-145)
[2022-11-15] MEDS ORDERED: ENOXAPARIN 40MG/0.4ML SYRINGE (J1650 PER 10MG) SC SCH (21:00)
[2022-11-15] MEDS: INSULIN LISPRO (NovoLOG) PER UNIT SC SCH (21:00)
[2022-11-15] MEDS ORDERED: LEVEMIR (INSULIN DETEMIR) 1 UNITS/0.01ML SC SCH (21:00)
[2022-11-15] MEDS ORDERED: GLUCOSE 4GM CHEW TABLET PO PRN (21:40)
[2022-11-15] MEDS ORDERED: GLUCAGON INJ 1MG VIAL SC PRN (21:40)
[2022-11-15] MEDS ORDERED: DEXTROSE 50% 50ML SYRINGE IV PRN (21:40)
[2022-11-16] VITALS (9 sets, daily range): BP systolic 100–139; BP diastolic 58–88
[2022-11-16] MEDS: HYDROMORPHONE HCL 0.5 MG/ 0.5 ML SYRINGE IV PRN ×3 (00:54→05:08)
[2022-11-16] MEDS ORDERED: NS 1,000 ML IV SCH (00:55)
[2022-11-16] MEDS: PANTOPRAZOLE 40MG VIAL IV SCH ×2 (01:24→14:54)
[2022-11-16 01:42] LABS: BLOOD UREA NITROGEN 10 MG/DL (9-23); CALCIUM LEVEL 8.2 MG/DL (8.5-10.1); CARBON DIOXIDE LEVEL 15 MMOL/L (20-31); CHLORIDE LEVEL 107 MMOL/L (98-107); CREATININE FOR GFR 0.48 MG/DL (0.70-1.30); GLOMERULAR FILTRATION RATE > 60.0 (>60); GLUCOSE, FASTING 257 MG/DL (60-100); POTASSIUM SERUM 4.5 MMOL/L (3.5-5.1); SODIUM LEVEL 137 MMOL/L (136-145)
[2022-11-16] MEDS: SUCRALFATE 1 GM TAB PO SCH ×2 (01:55→10:20)
[2022-11-16] MEDS ORDERED: POTASSIUM PHOSPHATE INJ 15 MMOL in D5W 250 ML IV ONE (02:00)
[2022-11-16] MEDS ORDERED: METOCLOPRAMIDE INJ 10MG/2ML VIAL IV ONE (02:00)
[2022-11-16] MEDS ORDERED: HumuLIN R (REGULAR) INSULIN (NovoLIN R) **100U/ML** PER UNIT IV STA ×3 (02:33→04:51)
[2022-11-16] MEDS ORDERED: D5W/0.9% SODIUM CHLORIDE 1,000 ML IV SCH (02:35)
[2022-11-16] MEDS: ONDANSETRON 4MG 2ML VIAL IV PRN ×3 (04:52→21:05)
[2022-11-16 05:37] LABS: BLOOD UREA NITROGEN 10 MG/DL (9-23); CALCIUM LEVEL 8.1 MG/DL (8.5-10.1); CARBON DIOXIDE LEVEL 15 MMOL/L (20-31); CHLORIDE LEVEL 105 MMOL/L (98-107); CREATININE FOR GFR 0.51 MG/DL (0.70-1.30); GLOMERULAR FILTRATION RATE > 60.0 (>60); GLUCOSE, FASTING 284 MG/DL (60-100); MAGNESIUM LEVEL 1.9 MG/DL (1.8-2.4); PHOSPHORUS LEVEL 3.2 MG/DL (2.5-4.9); POTASSIUM SERUM 4.3 MMOL/L (3.5-5.1); SODIUM LEVEL 135 MMOL/L (136-145)
[2022-11-16] MEDS ORDERED: NS 1,000 ML IV ONE (05:45)
[2022-11-16] MEDS: INSULIN REGULAR IN 0.9 % NACL 100 UNIT in IV 1 EA IV SCH ×4 (05:56→11:48)
[2022-11-16] MEDS: INSULIN IV RATE CHANGE DOCUMENTATION ML/HR XX SCH ×2 (06:42→08:01)
[2022-11-16 07:22] LABS: VENOUS BASE EXCESS -10.3 (-2.0-2.0); VENOUS HCO3 15.2 MEQ/L (23.0-27.0); VENOUS O2 SATURATION 94.4 % (60.0-80.0); VENOUS PARTIAL PRESSURE CO2 32.6 mmHg (38.0-50.0); VENOUS PARTIAL PRESSURE O2 72.9 mmHg (30.0-50.0); VENOUS PH 7.287 UNITS (7.330-7.430); VENOUS STANDARD HCO3 16.2 MEQ/L; VENOUS TOTAL CO2 16.2 MEQ/L (24.0-28.0)
[2022-11-16] MEDS: INSULIN LISPRO (NovoLOG) PER UNIT SC SCH ×4 (07:30→20:48)
[2022-11-16] MEDS ORDERED: ONDANSETRON 4MG 2ML VIAL IV STA (07:35)
[2022-11-16] MEDS ORDERED: HYDROMORPHONE HCL 0.5 MG/ 0.5 ML SYRINGE IV STA ×2 (07:45→15:11)
[2022-11-16 08:02] LABS: BLOOD UREA NITROGEN 9 MG/DL (9-23); CALCIUM LEVEL 7.7 MG/DL (8.5-10.1); CARBON DIOXIDE LEVEL 19 MMOL/L (20-31); CHLORIDE LEVEL 110 MMOL/L (98-107); CREATININE FOR GFR 0.48 MG/DL (0.70-1.30); GLOMERULAR FILTRATION RATE > 60.0 (>60); GLUCOSE, FASTING 202 MG/DL (60-100); PHOSPHORUS LEVEL 2.6 MG/DL (2.5-4.9); POTASSIUM SERUM 3.9 MMOL/L (3.5-5.1); SODIUM LEVEL 140 MMOL/L (136-145)
[2022-11-16 09:33] LABS: BLOOD UREA NITROGEN 6 MG/DL (9-23); CALCIUM LEVEL 7.6 MG/DL (8.5-10.1); CARBON DIOXIDE LEVEL 18 MMOL/L (20-31); CHLORIDE LEVEL 109 MMOL/L (98-107); GLOMERULAR FILTRATION RATE > 60.0 (>60); GLUCOSE, FASTING 176 MG/DL (60-100); PHOSPHORUS LEVEL 2.2 MG/DL (2.5-4.9); POTASSIUM SERUM 3.8 MMOL/L (3.5-5.1); SODIUM LEVEL 137 MMOL/L (136-145)
[2022-11-16] MEDS ORDERED: MAALOX 30 ML SUSP *UDC PO ONE (10:35)
[2022-11-16] MEDS ORDERED: NORCO, ANEXSIA 5/325MG TABLET (HYDROcodone/ACETAMINOPHEN) PO ONE (12:40)
[2022-11-16 14:00] LABS: BLOOD UREA NITROGEN 5 MG/DL (9-23); CALCIUM LEVEL 7.8 MG/DL (8.5-10.1); CARBON DIOXIDE LEVEL 23 MMOL/L (20-31); CHLORIDE LEVEL 109 MMOL/L (98-107); GLOMERULAR FILTRATION RATE > 60.0 (>60); GLUCOSE, FASTING 153 MG/DL (60-100); PHOSPHORUS LEVEL 1.7 MG/DL (2.5-4.9); POTASSIUM SERUM 3.9 MMOL/L (3.5-5.1); SODIUM LEVEL 139 MMOL/L (136-145)
[2022-11-16] MEDS ORDERED: LEVEMIR (INSULIN DETEMIR) 1 UNITS/0.01ML SC ONE (14:40)
[2022-11-16] MEDS: NS 1,000 ML IV SCH (14:55)
[2022-11-16] MEDS: PERCOCET 5MG/325MG TAB PO PRN (17:34)
[2022-11-16] MEDS ORDERED: MAGNESIUM CITRATE 300ML BTL PO PRN (18:20)
[2022-11-16] MEDS ORDERED: GI COCKTAIL 50ML BTL(HYOSCYAMINE/MAALOX/LIDOCAINE VISCOUS)(1:3:1) PO ONE (19:00)
[2022-11-16 19:03] LABS: BLOOD UREA NITROGEN < 5 MG/DL (9-23); CALCIUM LEVEL 8.2 MG/DL (8.5-10.1); CARBON DIOXIDE LEVEL 23 MMOL/L (20-31); CHLORIDE LEVEL 106 MMOL/L (98-107); CREATININE FOR GFR 0.42 MG/DL (0.70-1.30); GLOMERULAR FILTRATION RATE > 60.0 (>60); GLUCOSE, FASTING 149 MG/DL (60-100); POTASSIUM SERUM 3.6 MMOL/L (3.5-5.1); SODIUM LEVEL 137 MMOL/L (136-145)
[2022-11-16] MEDS: K-PHOS NEUTRAL 250MG TABLET (SOD.PHOSPHATE/POT.PHOSPHATE) PO SCH (22:04)
[2022-11-16 22:20] LABS: BLOOD UREA NITROGEN 5 MG/DL (9-23); CALCIUM LEVEL 7.9 MG/DL (8.5-10.1); CARBON DIOXIDE LEVEL 25 MMOL/L (20-31); CHLORIDE LEVEL 106 MMOL/L (98-107); CREATININE FOR GFR 0.43 MG/DL (0.70-1.30); GLOMERULAR FILTRATION RATE > 60.0 (>60); GLUCOSE, FASTING 117 MG/DL (60-100); POTASSIUM SERUM 3.5 MMOL/L (3.5-5.1); SODIUM LEVEL 138 MMOL/L (136-145)
[2022-11-16 22:21] LABS: PHOSPHORUS LEVEL 1.8 MG/DL (2.5-4.9)
[2022-11-17] MEDS ORDERED: RAMELTEON 8 MG TAB (ROZEREM) PO PRN (00:30)
[2022-11-17] MEDS: K-PHOS NEUTRAL 250MG TABLET (SOD.PHOSPHATE/POT.PHOSPHATE) PO SCH (01:04)
[2022-11-17] MEDS: PANTOPRAZOLE 40MG VIAL IV SCH (01:05)
[2022-11-17] MEDS: PERCOCET 5MG/325MG TAB PO PRN ×2 (01:05→09:22)
[2022-11-17] MEDS: ONDANSETRON 4MG 2ML VIAL IV PRN (03:23)
[2022-11-17] MEDS: NS 1,000 ML IV SCH (03:41)
[2022-11-17] MEDS ORDERED: MORPHINE 2 MG/ML 1ML VIAL IV ONE ×2 (04:00→07:00)
[2022-11-17 06:00] VITALS: BP 136/93
[2022-11-17] MEDS ORDERED: METOCLOPRAMIDE INJ 10MG/2ML VIAL IV ONE (07:00)
[2022-11-17 07:12] LABS: HEMATOCRIT 36.4 % (42.0-52.0); HEMOGLOBIN 11.9 g/dl (13.5-17.5); MEAN CORPUSCULAR HEMOGLOBIN 28.3 pg (27.0-33.0); MEAN CORPUSCULAR HGB CONC 32.7 g/dl (32.0-36.5); MEAN CORPUSCULAR VOLUME 86.7 fl (80.0-96.0); PLATELET COUNT, AUTOMATED 323 10^3/uL (150-450); WHITE BLOOD COUNT 11.3 10^3/uL (4.0-10.0)
[2022-11-17] MEDS ORDERED: SUCRALFATE 1 GM TAB PO SCH (07:30)
[2022-11-17 07:40] LABS: BLOOD UREA NITROGEN 7 MG/DL (9-23); CALCIUM LEVEL 8.1 MG/DL (8.5-10.1); CARBON DIOXIDE LEVEL 27 MMOL/L (20-31); CHLORIDE LEVEL 103 MMOL/L (98-107); CREATININE FOR GFR 0.44 MG/DL (0.70-1.30); GLOMERULAR FILTRATION RATE > 60.0 (>60); GLUCOSE, FASTING 191 MG/DL (60-100); MAGNESIUM LEVEL 2.3 MG/DL (1.8-2.4); POTASSIUM SERUM 3.6 MMOL/L (3.5-5.1); SODIUM LEVEL 138 MMOL/L (136-145)
[2022-11-17] MEDS: INSULIN LISPRO (NovoLOG) PER UNIT SC SCH (08:50)
[2022-11-17] MEDS ORDERED: SUCR1TA PO ×2 (09:15→11:42)
[2022-11-17] MEDS ORDERED: PANT20TA6 PO ×2 (09:15→11:42)
[2022-11-17] MEDS ORDERED: REGL5TAB2 PO (11:42)
== END 2022-11-17 11:51 | disposition home or self-care (01) | DRG 420 ==
LOC: M ED 10:44 → EDBD 10:44 → M ED INP 13:43 → M ICU 14:21 → M MSPAV 11-16 21:08
PROVIDERS: ADMIT Internal Medicine; ATTEND Internal Medicine
DX: E10.10 Type 1 diabetes mellitus with ketoacidosis without coma (principal); K20.90 Esophagitis, unspecified without bleeding; E86.0 Dehydration; Z20.822 Contact with and (suspected) exposure to COVID-19; Z88.0 Allergy status to penicillin; Z88.8 Allergy status to other drugs, medicaments and biological substances; Z91.14 Patient's other noncompliance with medication regimen; Z79.4 Long term (current) use of insulin; Z79.899 Other long term (current) drug therapy

== ENCOUNTER 2023-01-23 09:24 | Emergency (ER) | payer OTHER ==
[~2023-01-23] VITALS: Ht 167.6 cm; Wt 56.4 kg
[~2023-01-23 09:24] MED LIST changes: +PANT20TA6 PO; -PANTOPRAZOLE 40MG VIAL IV SCH; +REGL5TAB2 PO; +SUCR1TA PO
[2023-01-23] MEDS ORDERED: PROM25TA12 (11:17)
[2023-01-23] MEDS ORDERED: CIPR-249 (11:17)
[2023-01-23 11:47] LABS: BASO % 0.3 % (0.0-1.0); HEMATOCRIT 41.2 % (42.0-52.0); HEMOGLOBIN 13.3 g/dl (13.5-17.5); LYMPH # 1.9 10^3/uL (1.5-5.0); LYMPH % 15.2 % (24.0-44.0); MEAN CORPUSCULAR HEMOGLOBIN 27.8 pg (27.0-33.0); MEAN CORPUSCULAR HGB CONC 32.3 g/dl (32.0-36.5); MEAN CORPUSCULAR VOLUME 86.2 fl (80.0-96.0); MONO # 0.6 10^3/uL (0.0-0.8); NEUTROPHILS % 79.2 % (36.0-66.0); PLATELET COUNT, AUTOMATED 346 10^3/uL (150-450); RED BLOOD COUNT 4.78 10^6/uL (4.30-6.10); WHITE BLOOD COUNT 12.6 10^3/uL (4.0-10.0)
[2023-01-23] MEDS ORDERED: NS 1,000 ML IV ONE (12:00)
[2023-01-23 12:11] LABS: ALBUMIN 3.8 G/DL (3.2-5.2); BILIRUBIN,DIRECT 0.2 MG/DL (<0.4); BILIRUBIN,TOTAL 0.6 MG/DL (0.3-1.2); TOTAL PROTEIN 7.5 G/DL (5.7-8.2)
[2023-01-23 12:27] LABS: VENOUS BASE EXCESS 0.2 (-2.0-2.0); VENOUS HCO3 25.7 MMOL/L (23.0-27.0); VENOUS O2 SATURATION 49.7 % (60.0-80.0); VENOUS PARTIAL PRESSURE CO2 45.1 mmHg (38.0-50.0); VENOUS PARTIAL PRESSURE O2 27.1 mmHg (30.0-50.0); VENOUS PH 7.374 UNITS (7.330-7.430); VENOUS STANDARD HCO3 23.5 MMOL/L; VENOUS TOTAL CO2 27.1 MMOL/L (24.0-28.0)
[2023-01-23 13:13] LABS: BLOOD UREA NITROGEN 11 MG/DL (9-23); CALCIUM LEVEL 8.8 MG/DL (8.5-10.1); CARBON DIOXIDE LEVEL 29 MMOL/L (20-31); CHLORIDE LEVEL 103 MMOL/L (98-107); CREATININE FOR GFR 0.57 MG/DL (0.70-1.30); GLOMERULAR FILTRATION RATE > 60.0 (>60); GLUCOSE, FASTING 148 MG/DL (60-100); POTASSIUM SERUM 3.7 MMOL/L (3.5-5.1); SODIUM LEVEL 140 MMOL/L (136-145)
[2023-01-23 13:16] LABS: FREE T4 0.98 NG/DL (0.89-1.76); THYROID STIMULATING HORMONE 2.742 uIU/ML (0.55-4.78)
[2023-01-23 14:24] VITALS: BP 122/62
[2023-01-23 16:08] LABS: GC DNA AMPLIFICATION NEGATIVE (NEGATIVE)
== END 2023-01-23 15:12 | disposition home or self-care (01) ==
LOC: M ED 09:24
DX: R11.10 Vomiting, unspecified (principal); E11.9 Type 2 diabetes mellitus without complications; E03.9 Hypothyroidism, unspecified; F12.10 Cannabis abuse, uncomplicated; Z79.4 Long term (current) use of insulin; Z88.0 Allergy status to penicillin; Z88.8 Allergy status to other drugs, medicaments and biological substances

== ENCOUNTER 2023-02-25 08:28 | Observation (INO) | payer OTHER ==
[~2023-02-25] VITALS: Ht 167.6 cm; Wt 54.0 kg
[~2023-02-25 08:28] MED LIST changes: -BASA100I SQ; +BASA100I SUBQ; +CIPR-249; +PROM25TA12
[2023-02-25] MEDS ORDERED: NS 1,000 ML IV ONE (08:45)
[2023-02-25 09:03] LABS: VENOUS BASE EXCESS -2.3 (-2.0-2.0); VENOUS HCO3 22.9 MMOL/L (23.0-27.0); VENOUS O2 SATURATION 99.1 % (60.0-80.0); VENOUS PARTIAL PRESSURE O2 154.3 mmHg (30.0-50.0); VENOUS PH 7.365 UNITS (7.330-7.430); VENOUS STANDARD HCO3 22.6 MMOL/L; VENOUS TOTAL CO2 24.2 MMOL/L (24.0-28.0)
[2023-02-25] MEDS ORDERED: HumuLIN R (REGULAR) INSULIN (NovoLIN R) **100U/ML** PER UNIT IV ONE (09:15)
[2023-02-25 09:18] LABS: BASO # 0.1 10^3/uL (0.0-0.2); BASO % 0.5 % (0.0-1.0); EOS % 0.1 % (0.0-3.0); HEMATOCRIT 43.6 % (42.0-52.0); HEMOGLOBIN 14.4 g/dl (13.5-17.5); LYMPH # 2.1 10^3/uL (1.5-5.0); MEAN CORPUSCULAR HEMOGLOBIN 27.6 pg (27.0-33.0); MEAN CORPUSCULAR VOLUME 83.7 fl (80.0-96.0); MONO # 0.5 10^3/uL (0.0-0.8); MONO % 4.6 % (2.0-8.0); NEUTROPHILS # 7.2 10^3/uL (1.5-8.5); NEUTROPHILS % 73.4 % (36.0-66.0); PLATELET COUNT, AUTOMATED 350 10^3/uL (150-450); RED BLOOD COUNT 5.21 10^6/uL (4.30-6.10); WHITE BLOOD COUNT 9.8 10^3/uL (4.0-10.0)
[2023-02-25] MEDS ORDERED: ONDANSETRON 4MG 2ML VIAL IV ONE (09:20)
[2023-02-25] MEDS ORDERED: KETOROLAC 30 MG/ML 1ML VIAL IV ONE (09:20)
[2023-02-25 09:37] LABS: LIPASE 54 U/L (12-53)
[2023-02-25 09:39] LABS: ALBUMIN 4.2 G/DL (3.2-5.2); ALKALINE PHOSPHATASE 116 U/L (46-116); ALT/SGPT 20 U/L (7.0-40); AST/SGOT 15 U/L (<34); BILIRUBIN,DIRECT 0.1 MG/DL (<0.4); BILIRUBIN,TOTAL 0.6 MG/DL (0.3-1.2); TOTAL PROTEIN 7.9 G/DL (5.7-8.2)
[2023-02-25 09:41] LABS: ACETONE/KETONE > 4.50 MMOL/L (0.02-0.27)
[2023-02-25 10:47] LABS: OSMOLALITY SERUM 309 MOSM/KG (275-295)
[2023-02-25] MEDS ORDERED: PROMETHAZINE 25MG/ML 1ML VIAL IV ONE (11:45)
[2023-02-25 11:50] LABS: HEMOGLOBIN A1c 12.2 % (4.0-6.0)
[2023-02-25 12:32] LABS: BLOOD UREA NITROGEN 17 MG/DL (9-23); CALCIUM LEVEL 9.1 MG/DL (8.5-10.1); CARBON DIOXIDE LEVEL 25 MMOL/L (20-31); CHLORIDE LEVEL 102 MMOL/L (98-107); CREATININE FOR GFR 0.59 MG/DL (0.70-1.30); GLOMERULAR FILTRATION RATE > 60.0 (>60); GLUCOSE, FASTING 295 MG/DL (60-100); POTASSIUM SERUM 4.3 MMOL/L (3.5-5.1); SODIUM LEVEL 139 MMOL/L (136-145)
[2023-02-25] MEDS ORDERED: MED REC IN PROGRESS XX SCH (12:40)
[2023-02-25] MEDS ORDERED: ISOVUE-370 76% 100ML VIAL As Ordered ONE (12:50)
[2023-02-25] MEDS ORDERED: HALOPERIDOL 5MG/ML 1ML VIAL IV ONE (12:55)
[2023-02-25 13:00] LABS: RSV AMPLIFICATION NEGATIVE (NEGATIVE)
[2023-02-25] MEDS: INSULIN LISPRO (NovoLOG) PER UNIT SC SCH ×4 (13:00→23:36)
[2023-02-25] MEDS ORDERED: HOME MED LIST COMPLETE! XX SCH (13:00)
[2023-02-25] MEDS ORDERED: LR 1,000 ML IV SCH (13:15)
[2023-02-25] MEDS ORDERED: GLUCOSE 4GM CHEW TABLET PO PRN (13:50)
[2023-02-25] MEDS ORDERED: GLUCAGON INJ 1MG VIAL SC PRN (13:50)
[2023-02-25] MEDS ORDERED: MOM 30ML SUSPENSION UDC PO PRN (13:50)
[2023-02-25] MEDS ORDERED: ACETAMINOPHEN TAB 650MG DOSE (2X325MG) PO PRN (13:50)
[2023-02-25] MEDS ORDERED: ONDANSETRON 4MG 2ML VIAL IV PRN (14:30)
[2023-02-25 15:03] VITALS: BP 135/85; TEMP 97.7; O2SAT 96
[2023-02-25 15:05] LABS: AMPHETAMINES LEVEL URINE NEGATIVE (NEGATIVE)
[2023-02-25 15:06] LABS: BARBITURATES URINE NEGATIVE (NEGATIVE); BENZODIAZEPINES URINE NEGATIVE (NEGATIVE); COCAINE METABOLITE URINE NEGATIVE (NEGATIVE); METHADONE URINE NEGATIVE (NEGATIVE); OPIATES URINE NEGATIVE (NEGATIVE); PHENCYCLIDINE URINE NEGATIVE (NEGATIVE)
[2023-02-25 15:08] LABS: CANNABINOIDS URINE POSITIVE (NEGATIVE)
[2023-02-25 15:43] LABS: INR 0.95; PROTHROMBIN TIME 12.9 SECONDS (12.5-14.5)
[2023-02-25] MEDS: LR 1,000 ML IV SCH ×2 (16:05→21:14)
[2023-02-25] MEDS: ENOXAPARIN 40MG/0.4ML SYRINGE (J1650 PER 10MG) SC SCH (16:06)
[2023-02-25] MEDS ORDERED: INSULIN LISPRO (NovoLOG) PER UNIT SC ONE (17:30)
[2023-02-25] MEDS ORDERED: LR 1,000 ML IV ONE (17:30)
[2023-02-25 19:11] LABS: BLOOD UREA NITROGEN 15 MG/DL (9-23); CALCIUM LEVEL 9.3 MG/DL (8.5-10.1); CARBON DIOXIDE LEVEL 16 MMOL/L (20-31); CHLORIDE LEVEL 104 MMOL/L (98-107); GLOMERULAR FILTRATION RATE > 60.0 (>60); GLUCOSE, FASTING 320 MG/DL (60-100); MAGNESIUM LEVEL 2.2 MG/DL (1.8-2.4); PHOSPHORUS LEVEL 4.6 MG/DL (2.5-4.9); POTASSIUM SERUM 5.2 MMOL/L (3.5-5.1); SODIUM LEVEL 138 MMOL/L (136-145)
[2023-02-25 20:15] VITALS: BP 102/57; TEMP 98.4; O2SAT 96
[2023-02-25] MEDS: METOCLOPRAMIDE INJ 10MG/2ML VIAL IV SCH (20:47)
[2023-02-25] MEDS ORDERED: LEVEMIR (INSULIN DETEMIR) 1 UNITS/0.01ML SC SCH (21:00)
[2023-02-25] MEDS: DOCUSATE SODIUM 100MG CAPSULE PO SCH (21:12)
[2023-02-25 21:41] LABS: BLOOD UREA NITROGEN 17 MG/DL (9-23); CALCIUM LEVEL 8.8 MG/DL (8.5-10.1); CARBON DIOXIDE LEVEL 23 MMOL/L (20-31); CHLORIDE LEVEL 111 MMOL/L (98-107); CREATININE FOR GFR 0.58 MG/DL (0.70-1.30); GLOMERULAR FILTRATION RATE > 60.0 (>60); GLUCOSE, FASTING 88 MG/DL (60-100); POTASSIUM SERUM 3.9 MMOL/L (3.5-5.1); SODIUM LEVEL 144 MMOL/L (136-145)
[2023-02-26] MEDS: DEXTROSE 50% 50ML SYRINGE IV PRN ×2 (00:02→22:55)
[2023-02-26] MEDS ORDERED: DEXTROSE 50% 50ML SYRINGE IV STA (00:05)
[2023-02-26 00:15] VITALS: BP 107/56; TEMP 98.1; O2SAT 93
[2023-02-26 02:23] LABS: BLOOD UREA NITROGEN 15 MG/DL (9-23); CALCIUM LEVEL 9.2 MG/DL (8.5-10.1); CARBON DIOXIDE LEVEL 24 MMOL/L (20-31); CHLORIDE LEVEL 109 MMOL/L (98-107); CREATININE FOR GFR 0.57 MG/DL (0.70-1.30); GLOMERULAR FILTRATION RATE > 60.0 (>60); GLUCOSE, FASTING 115 MG/DL (60-100); PHOSPHORUS LEVEL 4.9 MG/DL (2.5-4.9); POTASSIUM SERUM 3.7 MMOL/L (3.5-5.1); SODIUM LEVEL 143 MMOL/L (136-145)
[2023-02-26] MEDS: METOCLOPRAMIDE INJ 10MG/2ML VIAL IV SCH ×2 (03:36→11:16)
[2023-02-26 04:25] VITALS: BP 101/59; TEMP 98; O2SAT 96
[2023-02-26] MEDS: INSULIN LISPRO (NovoLOG) PER UNIT SC SCH ×6 (05:00→23:00)
[2023-02-26 05:46] LABS: VENOUS BASE EXCESS -2.1 (-2.0-2.0); VENOUS HCO3 22.8 MMOL/L (23.0-27.0); VENOUS O2 SATURATION 99.5 % (60.0-80.0); VENOUS PARTIAL PRESSURE CO2 39.3 mmHg (38.0-50.0); VENOUS PARTIAL PRESSURE O2 247.9 mmHg (30.0-50.0); VENOUS PH 7.381 UNITS (7.330-7.430); VENOUS STANDARD HCO3 22.8 MMOL/L
[2023-02-26 06:27] LABS: MEAN CORPUSCULAR HEMOGLOBIN 27.8 pg (27.0-33.0); MEAN CORPUSCULAR HGB CONC 32.3 g/dl (32.0-36.5); MEAN CORPUSCULAR VOLUME 86.2 fl (80.0-96.0); PLATELET COUNT, AUTOMATED 284 10^3/uL (150-450); RED BLOOD COUNT 4.06 10^6/uL (4.30-6.10); WHITE BLOOD COUNT 12.6 10^3/uL (4.0-10.0)
[2023-02-26 06:31] LABS: HEMOGLOBIN 11.3 g/dl (13.5-17.5)
[2023-02-26] MEDS: LR 1,000 ML IV SCH ×2 (06:58→18:23)
[2023-02-26 07:33] VITALS: BP 110/68; TEMP 98.2; O2SAT 97
[2023-02-26] MEDS: ENOXAPARIN 40MG/0.4ML SYRINGE (J1650 PER 10MG) SC SCH (09:00)
[2023-02-26] MEDS: DOCUSATE SODIUM 100MG CAPSULE PO SCH ×2 (09:00→20:09)
[2023-02-26] MEDS ORDERED: LEVEMIR (INSULIN DETEMIR) 1 UNITS/0.01ML SC ONE ×2 (09:45→11:30)
[2023-02-26 11:02] LABS: BLOOD UREA NITROGEN 15 MG/DL (9-23); CALCIUM LEVEL 8.9 MG/DL (8.5-10.1); CARBON DIOXIDE LEVEL 19 MMOL/L (20-31); CHLORIDE LEVEL 103 MMOL/L (98-107); CREATININE FOR GFR 0.54 MG/DL (0.70-1.30); GLOMERULAR FILTRATION RATE > 60.0 (>60); GLUCOSE, FASTING 364 MG/DL (60-100); MAGNESIUM LEVEL 1.8 MG/DL (1.8-2.4); SODIUM LEVEL 138 MMOL/L (136-145)
[2023-02-26] MEDS ORDERED: HumuLIN R (REGULAR) INSULIN (NovoLIN R) **100U/ML** PER UNIT IV STA ×2 (11:08→11:15)
[2023-02-26] MEDS ORDERED: LR 1,000 ML IV ONE (11:10)
[2023-02-26 11:34] LABS: ACETONE/KETONE > 4.50 MMOL/L (0.02-0.27)
[2023-02-26 11:46] VITALS: BP 121/68; TEMP 98.3; O2SAT 100
[2023-02-26] MEDS: ONDANSETRON 4MG 2ML VIAL IV PRN ×2 (13:06→20:20)
[2023-02-26 14:38] LABS: BLOOD UREA NITROGEN 12 MG/DL (9-23); CALCIUM LEVEL 8.5 MG/DL (8.5-10.1); CARBON DIOXIDE LEVEL 20 MMOL/L (20-31); CHLORIDE LEVEL 106 MMOL/L (98-107); CREATININE FOR GFR 0.48 MG/DL (0.70-1.30); GLOMERULAR FILTRATION RATE > 60.0 (>60); GLUCOSE, FASTING 223 MG/DL (60-100); POTASSIUM SERUM 4.2 MMOL/L (3.5-5.1); SODIUM LEVEL 139 MMOL/L (136-145)
[2023-02-26 15:07] VITALS: BP 118/73; TEMP 98.3; O2SAT 100
[2023-02-26] MEDS: PROMETHAZINE 25MG/ML 1ML VIAL IV PRN (18:23)
[2023-02-26 19:40] LABS: BLOOD UREA NITROGEN 10 MG/DL (9-23); CALCIUM LEVEL 9.7 MG/DL (8.5-10.1); CARBON DIOXIDE LEVEL 22 MMOL/L (20-31); CHLORIDE LEVEL 103 MMOL/L (98-107); GLOMERULAR FILTRATION RATE > 60.0 (>60); GLUCOSE, FASTING 117 MG/DL (60-100); MAGNESIUM LEVEL 1.6 MG/DL (1.8-2.4); PHOSPHORUS LEVEL 3.3 MG/DL (2.5-4.9); SODIUM LEVEL 137 MMOL/L (136-145)
[2023-02-26 20:00] VITALS: BP 117/76; TEMP 98.8; O2SAT 98
[2023-02-26] MEDS ORDERED: MAG SULF 1GM/100ML (MAG RUN) 1 GM in IV 1 EA IV ONE (20:05)
[2023-02-27] MEDS: PROMETHAZINE 25MG/ML 1ML VIAL IV PRN (00:04)
[2023-02-27 02:31] LABS: HEMATOCRIT 37.5 % (42.0-52.0); HEMOGLOBIN 12.5 g/dl (13.5-17.5); MEAN CORPUSCULAR HEMOGLOBIN 27.8 pg (27.0-33.0); MEAN CORPUSCULAR HGB CONC 33.3 g/dl (32.0-36.5); MEAN CORPUSCULAR VOLUME 83.5 fl (80.0-96.0); PLATELET COUNT, AUTOMATED 334 10^3/uL (150-450); RED BLOOD COUNT 4.49 10^6/uL (4.30-6.10); WHITE BLOOD COUNT 16.1 10^3/uL (4.0-10.0)
[2023-02-27] MEDS: INSULIN LISPRO (NovoLOG) PER UNIT SC SCH ×6 (03:00→22:53)
[2023-02-27 03:04] LABS: BLOOD UREA NITROGEN 7 MG/DL (9-23); CARBON DIOXIDE LEVEL 21 MMOL/L (20-31); CHLORIDE LEVEL 102 MMOL/L (98-107); CREATININE FOR GFR 0.46 MG/DL (0.70-1.30); GLOMERULAR FILTRATION RATE > 60.0 (>60); GLUCOSE, FASTING 122 MG/DL (60-100); MAGNESIUM LEVEL 1.8 MG/DL (1.8-2.4); PHOSPHORUS LEVEL 3.1 MG/DL (2.5-4.9); POTASSIUM SERUM 3.7 MMOL/L (3.5-5.1); SODIUM LEVEL 135 MMOL/L (136-145)
[2023-02-27 04:00] VITALS: BP 140/79; TEMP 98.7; O2SAT 99
[2023-02-27] MEDS: LR 1,000 ML IV SCH ×2 (06:07→15:59)
[2023-02-27] MEDS: ONDANSETRON 4MG 2ML VIAL IV PRN (07:40)
[2023-02-27 07:43] LABS: ACETONE/KETONE 2.84 MMOL/L (0.02-0.27)
[2023-02-27 08:05] VITALS: BP 131/87; TEMP 98.1; O2SAT 100
[2023-02-27] MEDS: DOCUSATE SODIUM 100MG CAPSULE PO SCH ×2 (08:43→21:05)
[2023-02-27] MEDS: ENOXAPARIN 40MG/0.4ML SYRINGE (J1650 PER 10MG) SC SCH (08:46)
[2023-02-27] MEDS ORDERED: LEVEMIR (INSULIN DETEMIR) 1 UNITS/0.01ML SC SCH (09:00)
[2023-02-27] MEDS ORDERED: SCOPOLAMINE 1MG TRANSDERMAL PATCH TOP SCH (10:00)
[2023-02-27 10:49] LABS: BLOOD UREA NITROGEN 8 MG/DL (9-23); CALCIUM LEVEL 8.6 MG/DL (8.5-10.1); CARBON DIOXIDE LEVEL 24 MMOL/L (20-31); CHLORIDE LEVEL 103 MMOL/L (98-107); CREATININE FOR GFR 0.42 MG/DL (0.70-1.30); GLOMERULAR FILTRATION RATE > 60.0 (>60); GLUCOSE, FASTING 145 MG/DL (60-100); MAGNESIUM LEVEL 1.8 MG/DL (1.8-2.4); POTASSIUM SERUM 3.9 MMOL/L (3.5-5.1); SODIUM LEVEL 135 MMOL/L (136-145)
[2023-02-27 11:33] VITALS: BP 123/74; TEMP 98.3; O2SAT 98
[2023-02-27] MEDS: ONDANSETRON 4MG 2ML VIAL IV SCH ×4 (12:15→23:58)
[2023-02-27] MEDS ORDERED: PROCHLORPERAZINE 10MG 2ML VIAL IV PRN (13:00)
[2023-02-27] MEDS: MORPHINE 4 MG/ML 1ML VIAL IV PRN ×2 (14:15→18:31)
[2023-02-27] MEDS: DEXTROSE 50% 50ML SYRINGE IV PRN (15:23)
[2023-02-27 16:43] VITALS: BP 117/85; TEMP 98.2; O2SAT 98
[2023-02-27 18:56] LABS: BLOOD UREA NITROGEN 6 MG/DL (9-23); CALCIUM LEVEL 8.5 MG/DL (8.5-10.1); CARBON DIOXIDE LEVEL 27 MMOL/L (20-31); CHLORIDE LEVEL 101 MMOL/L (98-107); CREATININE FOR GFR 0.44 MG/DL (0.70-1.30); GLOMERULAR FILTRATION RATE > 60.0 (>60); GLUCOSE, FASTING 109 MG/DL (60-100); MAGNESIUM LEVEL 1.8 MG/DL (1.8-2.4); POTASSIUM SERUM 3.7 MMOL/L (3.5-5.1); SODIUM LEVEL 136 MMOL/L (136-145)
[2023-02-27] MEDS: GABAPENTIN 300 MG CAP PO SCH (19:10)
[2023-02-27] MEDS: PANTOPRAZOLE 20 MG TAB PO SCH (19:10)
[2023-02-27 21:20] VITALS: BP 124/83; TEMP 98.2; O2SAT 97
[2023-02-28 02:30] LABS: BLOOD UREA NITROGEN 6 MG/DL (9-23); CALCIUM LEVEL 9.1 MG/DL (8.5-10.1); CARBON DIOXIDE LEVEL 28 MMOL/L (20-31); CHLORIDE LEVEL 101 MMOL/L (98-107); GLOMERULAR FILTRATION RATE > 60.0 (>60); GLUCOSE, FASTING 87 MG/DL (60-100); POTASSIUM SERUM 3.2 MMOL/L (3.5-5.1); SODIUM LEVEL 136 MMOL/L (136-145)
[2023-02-28] MEDS: INSULIN LISPRO (NovoLOG) PER UNIT SC SCH ×4 (02:48→15:00)
[2023-02-28] MEDS: LR 1,000 ML IV SCH ×2 (03:02→12:46)
[2023-02-28] MEDS: ONDANSETRON 4MG 2ML VIAL IV SCH ×4 (05:00→16:00)
[2023-02-28 05:10] VITALS: BP 123/83; TEMP 98.6; O2SAT 99
[2023-02-28] MEDS: MORPHINE 4 MG/ML 1ML VIAL IV PRN ×2 (05:33→12:40)
[2023-02-28 06:07] LABS: HEMATOCRIT 36.9 % (42.0-52.0); HEMOGLOBIN 12.2 g/dl (13.5-17.5); MEAN CORPUSCULAR HGB CONC 33.1 g/dl (32.0-36.5); MEAN CORPUSCULAR VOLUME 84.6 fl (80.0-96.0); PLATELET COUNT, AUTOMATED 289 10^3/uL (150-450); RED BLOOD COUNT 4.36 10^6/uL (4.30-6.10); WHITE BLOOD COUNT 11.2 10^3/uL (4.0-10.0)
[2023-02-28] MEDS ORDERED: POTASSIUM CHLORIDE 10MEQ SR TABLET PO ONE (07:00)
[2023-02-28] MEDS: DOCUSATE SODIUM 100MG CAPSULE PO SCH (08:11)
[2023-02-28] MEDS: METOCLOPRAMIDE 5 MG TAB PO SCH ×2 (08:11→14:21)
[2023-02-28] MEDS: PANTOPRAZOLE 20 MG TAB PO SCH (08:11)
[2023-02-28] MEDS: ENOXAPARIN 40MG/0.4ML SYRINGE (J1650 PER 10MG) SC SCH (08:11)
[2023-02-28] MEDS: GABAPENTIN 300 MG CAP PO SCH (08:11)
[2023-02-28] MEDS ORDERED: LEVEMIR (INSULIN DETEMIR) 1 UNITS/0.01ML SC SCH (09:00)
[2023-02-28 10:39] LABS: BLOOD UREA NITROGEN 8 MG/DL (9-23); CALCIUM LEVEL 9.3 MG/DL (8.5-10.1); CARBON DIOXIDE LEVEL 23 MMOL/L (20-31); CHLORIDE LEVEL 98 MMOL/L (98-107); CREATININE FOR GFR 0.47 MG/DL (0.70-1.30); GLOMERULAR FILTRATION RATE > 60.0 (>60); GLUCOSE, FASTING 197 MG/DL (60-100); POTASSIUM SERUM 4.1 MMOL/L (3.5-5.1); SODIUM LEVEL 133 MMOL/L (136-145)
[2023-02-28] MEDS ORDERED: diphenhydrAMINE 12.5MG/5ML ELIXIR UDC PO ONE (11:00)
[2023-02-28 14:00] VITALS: BP 111/69; TEMP 97.7; O2SAT 98
[2023-02-28] MEDS ORDERED: GABA-282 PO (17:00)
[2023-02-28] MEDS ORDERED: PANT20TA6 PO (17:00)
[2023-02-28] MEDS ORDERED: METO5TAB2 PO (17:00)
[2023-02-28] MEDS ORDERED: BASA100I SUBQ (17:00)
[2023-02-28] MEDS ORDERED: ONDA4TAB6 PO (17:00)
== END 2023-02-28 17:33 | disposition home or self-care (01) ==
LOC: M ED 08:28 → EDBD 08:28 → M ED INP 13:48 → ENRESERV 14:17 → M PCU 15:04 → M MSPAV 02-27 16:52
PROVIDERS: ADMIT Student in an Organized Health Care Education/Training Program; ATTEND Student in an Organized Health Care Education/Training Program
DX: E10.10 Type 1 diabetes mellitus with ketoacidosis without coma (principal); E10.65 Type 1 diabetes mellitus with hyperglycemia; E10.40 Type 1 diabetes mellitus with diabetic neuropathy, unspecified; R11.2 Nausea with vomiting, unspecified; D72.829 Elevated white blood cell count, unspecified; K21.9 Gastro-esophageal reflux disease without esophagitis; Z79.4 Long term (current) use of insulin; F12.10 Cannabis abuse, uncomplicated; Z88.0 Allergy status to penicillin; Z88.8 Allergy status to other drugs, medicaments and biological substances; Z79.899 Other long term (current) drug therapy
CPT/HCPCS: 36415; 74177; 80047; 80048; 80076; 80307; 81001; 82010; 82803; 83036; 83690; 83735; 83930; 84100; 85025; 85027; 85610; 87040; 87088; 87631; 93005; 93041; 94760; 96361; 96372; 96374; 96375; 96376; 99285; J1630; J1650; J1815; J1885; J2405; J2550; J2765; J3475; Q9967

== ENCOUNTER 2023-08-07 15:47 | Emergency (ER) | payer OTHER ==
[~2023-08-07] VITALS: Ht 172.7 cm; Wt 70.0 kg
[~2023-08-07 15:47] MED LIST changes: +METO5TAB2 PO; +ONDA4TAB6 PO
[2023-08-07 16:44] LABS: BASO # 0.1 10^3/uL (0.0-0.2); BASO % 0.5 % (0.0-1.0); EOS % 0.1 % (0.0-3.0); HEMATOCRIT 37.1 % (42.0-52.0); HEMOGLOBIN 12.2 g/dl (13.5-17.5); LYMPH # 1.7 10^3/uL (1.5-5.0); LYMPH % 16.3 % (24.0-44.0); MEAN CORPUSCULAR HEMOGLOBIN 28.4 pg (27.0-33.0); MEAN CORPUSCULAR HGB CONC 32.9 g/dl (32.0-36.5); MEAN CORPUSCULAR VOLUME 86.3 fl (80.0-96.0); MONO # 0.7 10^3/uL (0.0-0.8); MONO % 6.5 % (2.0-8.0); NEUTROPHILS % 76.3 % (36.0-66.0); PLATELET COUNT, AUTOMATED 288 10^3/uL (150-450); WHITE BLOOD COUNT 10.5 10^3/uL (4.0-10.0)
[2023-08-07 17:11] LABS: LIPASE 44 U/L (12-53)
[2023-08-07 17:14] LABS: ALBUMIN 3.3 G/DL (3.2-5.2); ALKALINE PHOSPHATASE 98 U/L (46-116); ALT/SGPT 18 U/L (7.0-40); AST/SGOT 19 U/L (<34); BILIRUBIN,DIRECT 0.3 MG/DL (<0.4); BILIRUBIN,TOTAL 0.8 MG/DL (0.3-1.2); BLOOD UREA NITROGEN < 5 MG/DL (9-23); CALCIUM LEVEL 8.7 MG/DL (8.5-10.1); CARBON DIOXIDE LEVEL 21 MMOL/L (20-31); CHLORIDE LEVEL 101 MMOL/L (98-107); CREATININE FOR GFR 0.46 MG/DL (0.70-1.30); GLOMERULAR FILTRATION RATE > 60.0 (>60); GLUCOSE, FASTING 178 MG/DL (60-100); SODIUM LEVEL 131 MMOL/L (136-145); TOTAL PROTEIN 6.4 G/DL (5.7-8.2)
[2023-08-07] MEDS ORDERED: ONDANSETRON 4MG ORAL DISINTEGRATING TAB PO ONE (19:15)
[2023-08-07] MEDS ORDERED: HALOPERIDOL 5MG/ML 1ML VIAL IM ONE (19:25)
[2023-08-07 20:38] VITALS: BP 109/69; O2SAT 98
[2023-08-07 20:40] VITALS: TEMP 98.9
== END 2023-08-07 20:50 | disposition home or self-care (01) ==
LOC: M ED 15:47
DX: R10.9 Unspecified abdominal pain (principal); E10.9 Type 1 diabetes mellitus without complications; K21.9 Gastro-esophageal reflux disease without esophagitis; J45.909 Unspecified asthma, uncomplicated; E03.9 Hypothyroidism, unspecified; Z86.79 Personal history of other diseases of the circulatory system; F12.10 Cannabis abuse, uncomplicated; Z79.891 Long term (current) use of opiate analgesic; Z79.899 Other long term (current) drug therapy; Z88.0 Allergy status to penicillin; Z88.8 Allergy status to other drugs, medicaments and biological substances
CPT/HCPCS: 80048; 80076; 83690; 85025; 96372; 99284; J1630

== ENCOUNTER 2023-10-13 08:13 | Emergency (ER) | payer OTHER ==
[~2023-10-13] VITALS: Ht 172.7 cm; Wt 51.2 kg
[2023-10-13 09:06] LABS: VENOUS HCO3 22.5 MMOL/L (23.0-27.0); VENOUS O2 SATURATION 63.8 % (60.0-80.0); VENOUS PARTIAL PRESSURE CO2 37.9 mmHg (38.0-50.0); VENOUS PH 7.391 UNITS (7.330-7.430); VENOUS STANDARD HCO3 21.9 MMOL/L; VENOUS TOTAL CO2 23.6 MMOL/L (24.0-28.0)
[2023-10-13 09:13] LABS: BASO # 0.1 10^3/uL (0.0-0.2); BASO % 0.4 % (0.0-1.0); EOS % 0.1 % (0.0-3.0); HEMATOCRIT 45.7 % (42.0-52.0); HEMOGLOBIN 15.3 g/dl (13.5-17.5); LYMPH # 0.8 10^3/uL (1.5-5.0); LYMPH % 4.3 % (24.0-44.0); MEAN CORPUSCULAR HEMOGLOBIN 28.8 pg (27.0-33.0); MEAN CORPUSCULAR HGB CONC 33.5 g/dl (32.0-36.5); MEAN CORPUSCULAR VOLUME 86.1 fl (80.0-96.0); MONO # 0.6 10^3/uL (0.0-0.8); NEUTROPHILS # 16.8 10^3/uL (1.5-8.5); NEUTROPHILS % 91.7 % (36.0-66.0); PLATELET COUNT, AUTOMATED 425 10^3/uL (150-450); RED BLOOD COUNT 5.31 10^6/uL (4.30-6.10); WHITE BLOOD COUNT 18.3 10^3/uL (4.0-10.0)
[2023-10-13] MEDS: ONDANSETRON 4MG 2ML VIAL IV ONE (09:17)
[2023-10-13] MEDS: NS 1,000 ML IV ONE ×2 (09:17→15:15)
[2023-10-13 09:32] LABS: HEMOGLOBIN A1c 11.4 % (4.0-6.0)
[2023-10-13 09:42] LABS: CK-MB VALUE MASS < 1.0 NG/ML (<3.6); LIPASE 35 U/L (12-53)
[2023-10-13 09:44] LABS: ALBUMIN 4.4 G/DL (3.2-5.2); ALKALINE PHOSPHATASE 154 U/L (46-116); ALT/SGPT 39 U/L (7.0-40); AST/SGOT 28 U/L (<34); BILIRUBIN,DIRECT 0.1 MG/DL (<0.4); BILIRUBIN,TOTAL 0.5 MG/DL (0.3-1.2); BLOOD UREA NITROGEN 17 MG/DL (9-23); CALCIUM LEVEL 10.3 MG/DL (8.5-10.1); CARBON DIOXIDE LEVEL 24 MMOL/L (20-31); CHLORIDE LEVEL 103 MMOL/L (98-107); CREATININE FOR GFR 0.59 MG/DL (0.70-1.30); GLOMERULAR FILTRATION RATE > 60.0 (>60); GLUCOSE, FASTING 358 MG/DL (60-100); MAGNESIUM LEVEL 2.2 MG/DL (1.8-2.4); POTASSIUM SERUM 4.4 MMOL/L (3.5-5.1); SODIUM LEVEL 142 MMOL/L (136-145); TOTAL PROTEIN 8.6 G/DL (5.7-8.2)
[2023-10-13 10:00] LABS: CPK CREATINE PHOSPHOKINASE 51 U/L (46-171); MB/CK RELATIVE INDEX 1.96 (< OR =4)
[2023-10-13] MEDS ORDERED: ISOVUE-370 76% 100ML VIAL As Ordered ONE (10:25)
[2023-10-13] MEDS: INSULIN LISPRO (NovoLOG) PER UNIT SC STA (10:39)
[2023-10-13] MEDS: HALOPERIDOL 5MG/ML 1ML VIAL IV ONE (10:39)
[2023-10-13 11:21] LABS: ACETONE/KETONE > 4.50 MMOL/L (0.02-0.27)
[2023-10-13 13:23] LABS: AMPHETAMINES LEVEL URINE NEGATIVE (NEGATIVE); BARBITURATES URINE NEGATIVE (NEGATIVE); BENZODIAZEPINES URINE NEGATIVE (NEGATIVE); COCAINE METABOLITE URINE NEGATIVE (NEGATIVE); METHADONE URINE NEGATIVE (NEGATIVE); OPIATES URINE NEGATIVE (NEGATIVE); PHENCYCLIDINE URINE NEGATIVE (NEGATIVE)
[2023-10-13 13:27] LABS: CANNABINOIDS URINE POSITIVE (NEGATIVE)
[2023-10-13] MEDS: NS 500 ML IV ONE (14:10)
[2023-10-13 16:27] LABS: BASO % 0.3 % (0.0-1.0); EOS % 0.1 % (0.0-3.0); HEMATOCRIT 34.2 % (42.0-52.0); LYMPH # 1.5 10^3/uL (1.5-5.0); LYMPH % 10.3 % (24.0-44.0); MEAN CORPUSCULAR HEMOGLOBIN 29.1 pg (27.0-33.0); MEAN CORPUSCULAR HGB CONC 33.3 g/dl (32.0-36.5); MEAN CORPUSCULAR VOLUME 87.2 fl (80.0-96.0); MONO # 0.7 10^3/uL (0.0-0.8); NEUTROPHILS # 11.8 10^3/uL (1.5-8.5); NEUTROPHILS % 83.7 % (36.0-66.0); PLATELET COUNT, AUTOMATED 338 10^3/uL (150-450); RED BLOOD COUNT 3.92 10^6/uL (4.30-6.10); WHITE BLOOD COUNT 14.1 10^3/uL (4.0-10.0)
[2023-10-13 16:28] LABS: HEMOGLOBIN 11.4 g/dl (13.5-17.5)
[2023-10-13] MEDS ORDERED: ONDA4TAB6 PO (16:46)
[2023-10-13 16:54] VITALS: BP 104/57; TEMP 99.5; O2SAT 98
== END 2023-10-13 17:09 | disposition home or self-care (01) ==
LOC: EDUNIT# 08:13 → EDBD 08:13 → M ED 08:13
DX: E10.65 Type 1 diabetes mellitus with hyperglycemia (principal); F12.188 Cannabis abuse with other cannabis-induced disorder; Z88.0 Allergy status to penicillin; Z88.8 Allergy status to other drugs, medicaments and biological substances; Z79.83 Long term (current) use of bisphosphonates; Z79.4 Long term (current) use of insulin
CPT/HCPCS: 74177; 80047; 80048; 80076; 80307; 81001; 82010; 82550; 82553; 82803; 83036; 83605; 83690; 83735; 83930; 85025; 87040; 87086; 87486; 87581; 87633; 87798; 93005; 93041; 94760; 96361; 96372; 96374; 96375; 99285; J1630; J1815; J2405; Q9967

== ENCOUNTER 2023-11-01 10:35 | Emergency (ER) | payer OTHER ==
[~2023-11-01] VITALS: Ht 172.7 cm; Wt 56.8 kg
[2023-11-01 11:14] LABS: BASO % 0.4 % (0.0-1.0); EOS # 0.1 10^3/uL (0.0-0.5); EOS % 0.5 % (0.0-3.0); HEMATOCRIT 41.3 % (42.0-52.0); HEMOGLOBIN 13.9 g/dl (13.5-17.5); LYMPH # 1.2 10^3/uL (1.5-5.0); LYMPH % 12.8 % (24.0-44.0); MEAN CORPUSCULAR HEMOGLOBIN 28.9 pg (27.0-33.0); MEAN CORPUSCULAR HGB CONC 33.7 g/dl (32.0-36.5); MEAN CORPUSCULAR VOLUME 85.9 fl (80.0-96.0); MONO # 0.4 10^3/uL (0.0-0.8); MONO % 4.2 % (2.0-8.0); NEUTROPHILS # 7.9 10^3/uL (1.5-8.5); NEUTROPHILS % 81.8 % (36.0-66.0); PLATELET COUNT, AUTOMATED 375 10^3/uL (150-450); RED BLOOD COUNT 4.81 10^6/uL (4.30-6.10); WHITE BLOOD COUNT 9.7 10^3/uL (4.0-10.0)
[2023-11-01] MEDS: NS 1,000 ML IV ONE (11:37)
[2023-11-01 11:46] LABS: VENOUS HCO3 27.9 MMOL/L (23.0-27.0); VENOUS O2 SATURATION 72.2 % (60.0-80.0); VENOUS PARTIAL PRESSURE CO2 48.1 mmHg (38.0-50.0); VENOUS PARTIAL PRESSURE O2 37.2 mmHg (30.0-50.0); VENOUS PH 7.382 UNITS (7.330-7.430); VENOUS STANDARD HCO3 25.6 MMOL/L; VENOUS TOTAL CO2 29.4 MMOL/L (24.0-28.0)
[2023-11-01] MEDS ORDERED: DEXTROSE 50% 50ML SYRINGE As Ordered ONE (11:51)
[2023-11-01] MEDS: DEXTROSE 50% 50ML SYRINGE IV STA (11:52)
[2023-11-01 12:09] LABS: HEMOGLOBIN A1c 11.5 % (4.0-6.0)
[2023-11-01 12:20] LABS: ETHYL ALCOHOL (ETHANOL) < 0.003 % (0.000-0.010); LIPASE 53 U/L (12-53)
[2023-11-01 12:23] LABS: ALBUMIN 4.1 G/DL (3.2-5.2); ALKALINE PHOSPHATASE 161 U/L (46-116); ALT/SGPT 50 U/L (7.0-40); AST/SGOT 30 U/L (<34); BILIRUBIN,DIRECT 0.1 MG/DL (<0.4); BILIRUBIN,TOTAL 0.4 MG/DL (0.3-1.2); BLOOD UREA NITROGEN 12 MG/DL (9-23); CALCIUM LEVEL 10.1 MG/DL (8.5-10.1); CARBON DIOXIDE LEVEL 28 MMOL/L (20-31); CHLORIDE LEVEL 104 MMOL/L (98-107); CREATININE FOR GFR 0.48 MG/DL (0.70-1.30); GLOMERULAR FILTRATION RATE > 60.0 (>60); GLUCOSE, FASTING 64 MG/DL (60-100); POTASSIUM SERUM 3.6 MMOL/L (3.5-5.1); SODIUM LEVEL 140 MMOL/L (136-145); TOTAL PROTEIN 8.3 G/DL (5.7-8.2)
[2023-11-01] MEDS ORDERED: BASA100I SC (12:36)
[2023-11-01] MEDS ORDERED: HOME MED LIST COMPLETE! XX SCH (12:40)
[2023-11-01 13:18] LABS: AMPHETAMINES LEVEL URINE NEGATIVE (NEGATIVE); BARBITURATES URINE NEGATIVE (NEGATIVE); BENZODIAZEPINES URINE NEGATIVE (NEGATIVE); COCAINE METABOLITE URINE NEGATIVE (NEGATIVE); METHADONE URINE NEGATIVE (NEGATIVE); OPIATES URINE NEGATIVE (NEGATIVE); PHENCYCLIDINE URINE NEGATIVE (NEGATIVE)
[2023-11-01 13:21] LABS: CANNABINOIDS URINE POSITIVE (NEGATIVE)
[2023-11-01 14:45] VITALS: BP 120/80; TEMP 98.9; O2SAT 100
== END 2023-11-01 14:55 | disposition home or self-care (01) ==
LOC: EDBD 10:35 → M ED 10:35
DX: E10.649 Type 1 diabetes mellitus with hypoglycemia without coma (principal); Z79.4 Long term (current) use of insulin; Z88.0 Allergy status to penicillin; Z88.8 Allergy status to other drugs, medicaments and biological substances

== ENCOUNTER 2024-01-29 11:55 | Inpatient (IN) | payer MEDICAID, OTHER, SELFPAY ==
[~2024-01-29] VITALS: Ht 172.7 cm; Wt 53.5 kg
[~2024-01-29 11:55] MED LIST changes: +ADME100I SC; -ADME100I SQ; +BASA100I SC; +ONDA-282 PO; -ONDA4TAB6 PO
[2024-01-29 12:51] LABS: VENOUS BASE EXCESS -19.8 (-2.0-2.0); VENOUS HCO3 8.9 MMOL/L (23.0-27.0); VENOUS O2 SATURATION 80.2 % (60.0-80.0); VENOUS PARTIAL PRESSURE CO2 30.5 mmHg (38.0-50.0); VENOUS PARTIAL PRESSURE O2 54.4 mmHg (30.0-50.0); VENOUS PH 7.084 UNITS (7.330-7.430); VENOUS STANDARD HCO3 10.3 MMOL/L; VENOUS TOTAL CO2 9.9 MMOL/L (24.0-28.0)
[2024-01-29 13:00] LABS: BASO % 0.3 % (0.0-1.0); HEMATOCRIT 47.8 % (42.0-52.0); HEMOGLOBIN 15.3 g/dl (13.5-17.5); LYMPH # 1.3 10^3/uL (1.5-5.0); LYMPH % 8.6 % (24.0-44.0); MEAN CORPUSCULAR HEMOGLOBIN 28.1 pg (27.0-33.0); MEAN CORPUSCULAR VOLUME 87.9 fl (80.0-96.0); MONO # 0.6 10^3/uL (0.0-0.8); MONO % 4.1 % (2.0-8.0); NEUTROPHILS # 12.8 10^3/uL (1.5-8.5); NEUTROPHILS % 86.5 % (36.0-66.0); PLATELET COUNT, AUTOMATED 392 10^3/uL (150-450); RED BLOOD COUNT 5.44 10^6/uL (4.30-6.10); WHITE BLOOD COUNT 14.8 10^3/uL (4.0-10.0)
[2024-01-29 13:05] LABS: HEMOGLOBIN A1c 12.5 % (4.0-6.0)
[2024-01-29 13:19] LABS: LIPASE 36 U/L (12-53)
[2024-01-29 13:21] LABS: ALBUMIN 4.1 G/DL (3.2-5.2); ALKALINE PHOSPHATASE 139 U/L (46-116); ALT/SGPT 22 U/L (7.0-40); AST/SGOT 20 U/L (<34); BILIRUBIN,DIRECT 0.1 MG/DL (<0.4); BILIRUBIN,TOTAL 0.4 MG/DL (0.3-1.2); TOTAL PROTEIN 8.3 G/DL (5.7-8.2)
[2024-01-29 13:27] LABS: ACETONE/KETONE > 4.50 MMOL/L (0.02-0.27)
[2024-01-29 13:29] LABS: OSMOLALITY SERUM 300 MOSM/KG (275-295)
[2024-01-29] MEDS ORDERED: NS 1,000 ML IV ONE (16:30)
[2024-01-29] MEDS: ONDANSETRON 4MG 2ML VIAL IV ONE (17:00)
[2024-01-29] MEDS: D5W/0.45% SODIUM CHLORIDE 1,000 ML IV ONE (17:00)
[2024-01-29] MEDS: HumuLIN R (REGULAR) INSULIN (NovoLIN R) **100U/ML** PER UNIT IV ONE (17:01)
[2024-01-29 17:08] LABS: BLOOD UREA NITROGEN 15 MG/DL (9-23); CALCIUM LEVEL 9.7 MG/DL (8.5-10.1); CARBON DIOXIDE LEVEL < 10.0 MMOL/L (20-31); CHLORIDE LEVEL 102 MMOL/L (98-107); CREATININE FOR GFR 0.63 MG/DL (0.70-1.30); GLOMERULAR FILTRATION RATE > 60.0 (>60); GLUCOSE, FASTING 281 MG/DL (60-100); POTASSIUM SERUM 4.7 MMOL/L (3.5-5.1); SODIUM LEVEL 131 MMOL/L (136-145)
[2024-01-29] MEDS ORDERED: INSULIN IV RATE CHANGE DOCUMENTATION ML/HR XX SCH (17:25)
[2024-01-29] MEDS: INSULIN REGULAR IN 0.9 % NACL 100 UNIT in IV 1 EA IV SCH (17:34)
[2024-01-29] MEDS ORDERED: INSULIN REGULAR IN 0.9 % NACL 100 UNIT in IV 1 EA IV SCH (17:45)
[2024-01-29] MEDS: INSULIN IV RATE CHANGE DOCUMENTATION ML/HR XX SCH (18:49)
[2024-01-29] MEDS: D5W/0.9% SODIUM CHLORIDE 1,000 ML IV SCH (18:56)
[2024-01-29 19:05] LABS: BLOOD UREA NITROGEN 14 MG/DL (9-23); CARBON DIOXIDE LEVEL < 10.0 MMOL/L (20-31); CHLORIDE LEVEL 104 MMOL/L (98-107); CREATININE FOR GFR 0.47 MG/DL (0.70-1.30); GLOMERULAR FILTRATION RATE > 60.0 (>60); GLUCOSE, FASTING 336 MG/DL (60-100); MAGNESIUM LEVEL 1.8 MG/DL (1.8-2.4); POTASSIUM SERUM 4.6 MMOL/L (3.5-5.1); SODIUM LEVEL 132 MMOL/L (136-145)
[2024-01-29] MEDS ORDERED: HOME MED LIST COMPLETE! XX SCH (20:20)
[2024-01-29] MEDS: METOCLOPRAMIDE INJ 10MG/2ML VIAL IV PRN (21:15)
[2024-01-29 21:45] VITALS: BP 135/85; TEMP 99.1; O2SAT 100
[2024-01-29 22:00] VITALS: BP 123/90; O2SAT 100
[2024-01-29 22:39] LABS: BLOOD UREA NITROGEN 12 MG/DL (9-23); CALCIUM LEVEL 9.1 MG/DL (8.5-10.1); CARBON DIOXIDE LEVEL 19 MMOL/L (20-31); CHLORIDE LEVEL 106 MMOL/L (98-107); CREATININE FOR GFR 0.47 MG/DL (0.70-1.30); GLOMERULAR FILTRATION RATE > 60.0 (>60); GLUCOSE, FASTING 207 MG/DL (60-100); POTASSIUM SERUM 4.3 MMOL/L (3.5-5.1); SODIUM LEVEL 137 MMOL/L (136-145)
[2024-01-29 23:15] VITALS: TEMP 100; O2SAT 99
[2024-01-29 23:21] LABS: PHOSPHORUS LEVEL 1.5 MG/DL (2.5-4.9)
[2024-01-29] MEDS ORDERED: KCL 40MEQ in NS 1000ML 1,000 ML IV SCH (23:30)
[2024-01-30] VITALS (7 sets, daily range): BP systolic 109–126; BP diastolic 62–83; TEMP 97.5–98.6; O2SAT 97–100
[2024-01-30] MEDS: KCL 40MEQ IN D5/NS 1000ML 1,000 ML IV SCH (00:07)
[2024-01-30] MEDS: ACETAMINOPHEN *IV* 1,000 MG in IV 1 EA IV ONE (00:07)
[2024-01-30] MEDS: ONDANSETRON 4MG 2ML VIAL IV PRN (01:50)
[2024-01-30 02:39] LABS: BLOOD UREA NITROGEN 11 MG/DL (9-23); CALCIUM LEVEL 8.7 MG/DL (8.5-10.1); CARBON DIOXIDE LEVEL 18 MMOL/L (20-31); CHLORIDE LEVEL 109 MMOL/L (98-107); CREATININE FOR GFR 0.46 MG/DL (0.70-1.30); GLOMERULAR FILTRATION RATE > 60.0 (>60); GLUCOSE, FASTING 130 MG/DL (60-100); POTASSIUM SERUM 3.6 MMOL/L (3.5-5.1); SODIUM LEVEL 136 MMOL/L (136-145)
[2024-01-30] MEDS: PANTOPRAZOLE 40MG VIAL IV SCH ×2 (04:41→20:49)
[2024-01-30] MEDS: GABAPENTIN 300 MG CAP PO ONE (04:41)
[2024-01-30 06:47] LABS: BLOOD UREA NITROGEN 11 MG/DL (9-23); CALCIUM LEVEL 8.8 MG/DL (8.5-10.1); CARBON DIOXIDE LEVEL 19 MMOL/L (20-31); CHLORIDE LEVEL 109 MMOL/L (98-107); CREATININE FOR GFR 0.45 MG/DL (0.70-1.30); GLOMERULAR FILTRATION RATE > 60.0 (>60); GLUCOSE, FASTING 150 MG/DL (60-100); POTASSIUM SERUM 3.9 MMOL/L (3.5-5.1); SODIUM LEVEL 136 MMOL/L (136-145)
[2024-01-30] MEDS: INSULIN LISPRO (NovoLOG) PER UNIT SC SCH ×2 (07:30→12:00)
[2024-01-30] MEDS ORDERED: METOCLOPRAMIDE INJ 10MG/2ML VIAL IV PRN (07:35)
[2024-01-30] MEDS ORDERED: DEXTROSE 50% 50ML SYRINGE IV PRN (07:50)
[2024-01-30] MEDS ORDERED: GLUCOSE 4 GM CHEW PO PRN (07:50)
[2024-01-30] MEDS ORDERED: GLUCAGON INJ 1MG VIAL SC PRN (07:50)
[2024-01-30] MEDS: LEVEMIR (INSULIN DETEMIR) 1 UNITS/0.01ML SC STA (08:10)
[2024-01-30] MEDS: ENOXAPARIN 40MG/0.4ML SYRINGE (J1650 PER 10MG) SC SCH (08:10)
[2024-01-30 10:51] LABS: BLOOD UREA NITROGEN 8 MG/DL (9-23); CALCIUM LEVEL 8.5 MG/DL (8.5-10.1); CARBON DIOXIDE LEVEL 20 MMOL/L (20-31); CHLORIDE LEVEL 108 MMOL/L (98-107); CREATININE FOR GFR 0.41 MG/DL (0.70-1.30); GLOMERULAR FILTRATION RATE > 60.0 (>60); GLUCOSE, FASTING 174 MG/DL (60-100); PHOSPHORUS LEVEL 1.5 MG/DL (2.5-4.9); POTASSIUM SERUM 4.1 MMOL/L (3.5-5.1); SODIUM LEVEL 135 MMOL/L (136-145)
[2024-01-30 11:39] LABS: BASO % 0.2 % (0.0-1.0); LYMPH # 1.6 10^3/uL (1.5-5.0); MEAN CORPUSCULAR HEMOGLOBIN 27.9 pg (27.0-33.0); MEAN CORPUSCULAR HGB CONC 32.8 g/dl (32.0-36.5); MONO # 1.1 10^3/uL (0.0-0.8); MONO % 7.5 % (2.0-8.0); NEUTROPHILS % 80.8 % (36.0-66.0); PLATELET COUNT, AUTOMATED 359 10^3/uL (150-450); RED BLOOD COUNT 4.59 10^6/uL (4.30-6.10); WHITE BLOOD COUNT 14.9 10^3/uL (4.0-10.0)
[2024-01-30 11:46] LABS: HEMOGLOBIN 12.8 g/dl (13.5-17.5)
[2024-01-30 13:31] LABS: PROCALCITONIN <0.04 ng/ml
[2024-01-30 14:53] LABS: BLOOD UREA NITROGEN 7 MG/DL (9-23); CALCIUM LEVEL 9.1 MG/DL (8.5-10.1); CARBON DIOXIDE LEVEL 21 MMOL/L (20-31); CHLORIDE LEVEL 106 MMOL/L (98-107); CREATININE FOR GFR 0.47 MG/DL (0.70-1.30); GLOMERULAR FILTRATION RATE > 60.0 (>60); GLUCOSE, FASTING 125 MG/DL (60-100); PHOSPHORUS LEVEL 1.6 MG/DL (2.5-4.9); POTASSIUM SERUM 4.1 MMOL/L (3.5-5.1); SODIUM LEVEL 137 MMOL/L (136-145)
[2024-01-30] MEDS: METOCLOPRAMIDE INJ 10MG/2ML VIAL IV SCH (14:56)
[2024-01-30] MEDS: HALOPERIDOL LACTATE 5MG/ML VIAL IV ONE (14:57)
[2024-01-30] MEDS: LR 1,000 ML IV ONE (14:57)
[2024-01-30] MEDS: SODIUM PHOSPHATE INJ 20 MMOL in D5W 250 ML IV ONE (14:58)
[2024-01-30 18:25] LABS: BLOOD UREA NITROGEN 6 MG/DL (9-23); CALCIUM LEVEL 8.6 MG/DL (8.5-10.1); CARBON DIOXIDE LEVEL 22 MMOL/L (20-31); CHLORIDE LEVEL 106 MMOL/L (98-107); GLOMERULAR FILTRATION RATE > 60.0 (>60); GLUCOSE, FASTING 204 MG/DL (60-100); PHOSPHORUS LEVEL 3.1 MG/DL (2.5-4.9); POTASSIUM SERUM 4.1 MMOL/L (3.5-5.1); SODIUM LEVEL 136 MMOL/L (136-145)
[2024-01-30] MEDS: LEVEMIR (INSULIN DETEMIR) 1 UNITS/0.01ML SC SCH (20:48)
[2024-01-30] MEDS ORDERED: LEVEMIR (INSULIN DETEMIR) 1 UNITS/0.01ML SC SCH (21:00)
[2024-01-30] MEDS ORDERED: INSULIN LISPRO (NovoLOG) PER UNIT SC SCH (21:00)
[2024-01-31 04:00] VITALS: BP 121/82; TEMP 98.4; O2SAT 99
[2024-01-31 07:07] LABS: BASO % 0.5 % (0.0-1.0); EOS % 0.4 % (0.0-3.0); HEMATOCRIT 35.9 % (42.0-52.0); HEMOGLOBIN 12.1 g/dl (13.5-17.5); LYMPH # 2.2 10^3/uL (1.5-5.0); LYMPH % 25.8 % (24.0-44.0); MEAN CORPUSCULAR HEMOGLOBIN 27.8 pg (27.0-33.0); MEAN CORPUSCULAR HGB CONC 33.7 g/dl (32.0-36.5); MEAN CORPUSCULAR VOLUME 82.5 fl (80.0-96.0); MONO # 1.2 10^3/uL (0.0-0.8); MONO % 13.9 % (2.0-8.0); NEUTROPHILS % 59.3 % (36.0-66.0); PLATELET COUNT, AUTOMATED 274 10^3/uL (150-450); RED BLOOD COUNT 4.35 10^6/uL (4.30-6.10); WHITE BLOOD COUNT 8.4 10^3/uL (4.0-10.0)
[2024-01-31 07:35] LABS: BLOOD UREA NITROGEN < 5 MG/DL (9-23); CALCIUM LEVEL 8.7 MG/DL (8.5-10.1); CARBON DIOXIDE LEVEL 26 MMOL/L (20-31); CHLORIDE LEVEL 106 MMOL/L (98-107); GLOMERULAR FILTRATION RATE > 60.0 (>60); GLUCOSE, FASTING 100 MG/DL (60-100); MAGNESIUM LEVEL 1.6 MG/DL (1.8-2.4); PHOSPHORUS LEVEL 2.8 MG/DL (2.5-4.9); POTASSIUM SERUM 3.3 MMOL/L (3.5-5.1); SODIUM LEVEL 140 MMOL/L (136-145)
[2024-01-31] MEDS: MAG SULF 1GM/100ML (MAG RUN) 1 GM in IV 1 EA IV SCH (10:49)
[2024-01-31 11:59] VITALS: BP 110/74; TEMP 97.9; O2SAT 98
[2024-01-31] MEDS ORDERED: REGL10TA6 PO (13:41)
[2024-01-31] MEDS ORDERED: MAGN400C2 PO (13:41)
[2024-01-31] MEDS ORDERED: PEN-308 SC (13:42)
[2024-01-31] MEDS ORDERED: BASA100I SC (13:42)
[2024-01-31] MEDS: KCL 10MEQ/100ML SWI (KRUN) 10 MEQ in IV 1 EA IV SCH (13:51)
[2024-01-31] MEDS: POTASSIUM CHLORIDE 10MEQ SR TABLET PO ONE (15:12)
== END 2024-01-31 16:45 | disposition home or self-care (01) | DRG 420 ==
LOC: M ED 11:55 → M ED INP 17:44 → M ICU 20:40 → M MSPAV 01-30 11:28
PROVIDERS: ADMIT Internal Medicine Pulmonary Disease; ATTEND Internal Medicine
DX: E10.10 Type 1 diabetes mellitus with ketoacidosis without coma (principal); E10.43 Type 1 diabetes mellitus with diabetic autonomic (poly)neuropathy; K31.84 Gastroparesis; F12.188 Cannabis abuse with other cannabis-induced disorder; Z79.4 Long term (current) use of insulin; Z11.52 Encounter for screening for COVID-19

== ENCOUNTER 2024-06-09 08:38 | Inpatient (IN) | payer MEDICAID, OTHER ==
[~2024-06-09] VITALS: Ht 162.6 cm; Wt 56.8 kg
[~2024-06-09 08:38] MED LIST changes: +GABA-1172 PO; -GABA-282 PO; +MAGN400C2 PO; +PEN-308 SC; +REGL10TA6 PO
[2024-06-09] MEDS: HALOPERIDOL LACTATE 5MG/ML VIAL IV ONE (09:34)
[2024-06-09] MEDS: NS 1,000 ML IV ONE ×2 (09:34→13:34)
[2024-06-09] MEDS: diphenhydrAMINE 50MG/ML VIAL IV ONE (09:34)
[2024-06-09 09:48] LABS: VENOUS BASE EXCESS -3.8 (-2.0-2.0); VENOUS HCO3 21.5 MMOL/L (23.0-27.0); VENOUS PARTIAL PRESSURE CO2 39.9 mmHg (38.0-50.0); VENOUS PH 7.349 UNITS (7.330-7.430); VENOUS STANDARD HCO3 21.1 MMOL/L; VENOUS TOTAL CO2 22.7 MMOL/L (24.0-28.0)
[2024-06-09 10:01] LABS: BASO # 0.1 10^3/uL (0.0-0.2); BASO % 0.4 % (0.0-1.0); HEMATOCRIT 41.2 % (42.0-52.0); HEMOGLOBIN 13.5 g/dl (13.5-17.5); LYMPH # 1.1 10^3/uL (1.5-5.0); LYMPH % 8.2 % (24.0-44.0); MEAN CORPUSCULAR HEMOGLOBIN 27.6 pg (27.0-33.0); MEAN CORPUSCULAR HGB CONC 32.8 g/dl (32.0-36.5); MEAN CORPUSCULAR VOLUME 84.1 fl (80.0-96.0); MONO # 0.3 10^3/uL (0.0-0.8); MONO % 2.4 % (2.0-8.0); NEUTROPHILS % 88.4 % (36.0-66.0); PLATELET COUNT, AUTOMATED 452 10^3/uL (150-450); WHITE BLOOD COUNT 13.5 10^3/uL (4.0-10.0)
[2024-06-09 10:18] LABS: AMPHETAMINES LEVEL URINE NEGATIVE (NEGATIVE)
[2024-06-09 10:19] LABS: BARBITURATES URINE NEGATIVE (NEGATIVE); BENZODIAZEPINES URINE NEGATIVE (NEGATIVE); COCAINE METABOLITE URINE NEGATIVE (NEGATIVE); METHADONE URINE NEGATIVE (NEGATIVE); OPIATES URINE NEGATIVE (NEGATIVE); PHENCYCLIDINE URINE NEGATIVE (NEGATIVE)
[2024-06-09 10:21] LABS: ACETONE/KETONE 4.39 MMOL/L (0.02-0.27); CANNABINOIDS URINE POSITIVE (NEGATIVE)
[2024-06-09 10:24] LABS: ALKALINE PHOSPHATASE 181 U/L (46-116); ALT/SGPT 38 U/L (7.0-40); AST/SGOT 66 U/L (<34); BILIRUBIN,DIRECT < 0.1 MG/DL (<0.4); BILIRUBIN,TOTAL 0.5 MG/DL (0.3-1.2); LIPASE 45 U/L (12-53); MAGNESIUM LEVEL 2.2 MG/DL (1.8-2.4); TOTAL PROTEIN 8.7 G/DL (5.7-8.2)
[2024-06-09 10:53] LABS: OSMOLALITY SERUM 328 MOSM/KG (275-295)
[2024-06-09] MEDS: HumuLIN R (REGULAR) INSULIN (NovoLIN R) **100U/ML** PER UNIT IV ONE (11:32)
[2024-06-09 11:46] LABS: HEMOGLOBIN A1c 11.6 % (4.0-6.0)
[2024-06-09 13:31] LABS: BLOOD UREA NITROGEN 18 MG/DL (9-23); CALCIUM LEVEL 9.9 MG/DL (8.5-10.1); CARBON DIOXIDE LEVEL 20 MMOL/L (20-31); CHLORIDE LEVEL 110 MMOL/L (98-107); CREATININE FOR GFR 0.46 MG/DL (0.70-1.30); GLOMERULAR FILTRATION RATE > 60.0 (>60); GLUCOSE, FASTING 298 MG/DL (60-100); POTASSIUM SERUM 4.2 MMOL/L (3.5-5.1); SODIUM LEVEL 144 MMOL/L (136-145)
[2024-06-09] MEDS ORDERED: BASA100I SC (14:55)
[2024-06-09] MEDS ORDERED: METO10TA3 PO (14:55)
[2024-06-09] MEDS ORDERED: HOME MED LIST COMPLETE! XX SCH (14:55)
[2024-06-09] MEDS ORDERED: DEXTROSE 50% 50ML SYRINGE IV PRN (15:05)
[2024-06-09] MEDS ORDERED: METOCLOPRAMIDE 10MG TAB PO PRN (15:05)
[2024-06-09] MEDS ORDERED: GLUCAGON INJ 1MG VIAL SC PRN (15:05)
[2024-06-09] MEDS ORDERED: GLUCOSE 4 GM CHEW PO PRN (15:05)
[2024-06-09] MEDS ORDERED: MOM 30ML SUSPENSION UDC PO PRN (15:10)
[2024-06-09] MEDS: LR 1,000 ML IV ONE (15:22)
[2024-06-09 16:31] LABS: VENOUS BASE EXCESS -12.1 (-2.0-2.0); VENOUS HCO3 14.5 MMOL/L (23.0-27.0); VENOUS O2 SATURATION 85.6 % (60.0-80.0); VENOUS PARTIAL PRESSURE CO2 35.7 mmHg (38.0-50.0); VENOUS PARTIAL PRESSURE O2 58.4 mmHg (30.0-50.0); VENOUS PH 7.228 UNITS (7.330-7.430); VENOUS STANDARD HCO3 14.9 MMOL/L; VENOUS TOTAL CO2 15.6 MMOL/L (24.0-28.0)
[2024-06-09 16:58] LABS: BLOOD UREA NITROGEN 15 MG/DL (9-23); CALCIUM LEVEL 9.2 MG/DL (8.5-10.1); CARBON DIOXIDE LEVEL 17 MMOL/L (20-31); CHLORIDE LEVEL 112 MMOL/L (98-107); CREATININE FOR GFR 0.51 MG/DL (0.70-1.30); GLOMERULAR FILTRATION RATE > 60.0 (>60); GLUCOSE, FASTING 315 MG/DL (60-100); POTASSIUM SERUM 4.9 MMOL/L (3.5-5.1); SODIUM LEVEL 143 MMOL/L (136-145)
[2024-06-09] MEDS: METOCLOPRAMIDE 10MG TAB PO SCH (17:05)
[2024-06-09] MEDS: INSULIN LISPRO (NovoLOG) PER UNIT SC SCH (17:05)
[2024-06-09] MEDS: POTASSIUM CHLORIDE INJ 40 MEQ in LR 1,000 ML IV SCH (17:38)
[2024-06-09 17:55] VITALS: BP 120/71; TEMP 99.6; O2SAT 96
[2024-06-09] MEDS: LEVEMIR (INSULIN DETEMIR) 1 UNITS/0.01ML SC ONE (18:57)
[2024-06-09 20:00] VITALS: BP 122/70; TEMP 97.8; O2SAT 99
[2024-06-09] MEDS: DOCUSATE SODIUM 100MG CAPSULE PO SCH (20:53)
[2024-06-09] MEDS ORDERED: LEVEMIR (INSULIN DETEMIR) 1 UNITS/0.01ML SC SCH (21:00)
[2024-06-09 23:15] LABS: VENOUS BASE EXCESS -3.3 (-2.0-2.0); VENOUS HCO3 20.4 MMOL/L (23.0-27.0); VENOUS O2 SATURATION 99.1 % (60.0-80.0); VENOUS PARTIAL PRESSURE CO2 32.5 mmHg (38.0-50.0); VENOUS PARTIAL PRESSURE O2 155.4 mmHg (30.0-50.0); VENOUS PH 7.416 UNITS (7.330-7.430); VENOUS STANDARD HCO3 21.7 MMOL/L; VENOUS TOTAL CO2 21.4 MMOL/L (24.0-28.0)
[2024-06-09 23:47] LABS: BLOOD UREA NITROGEN 9 MG/DL (9-23); CALCIUM LEVEL 9.4 MG/DL (8.5-10.1); CARBON DIOXIDE LEVEL 23 MMOL/L (20-31); CHLORIDE LEVEL 111 MMOL/L (98-107); CREATININE FOR GFR 0.48 MG/DL (0.70-1.30); GLOMERULAR FILTRATION RATE > 60.0 (>60); GLUCOSE, FASTING 138 MG/DL (60-100); SODIUM LEVEL 140 MMOL/L (136-145)
[2024-06-10] VITALS: BP 115/72; TEMP 98.3; O2SAT 99
[2024-06-10 03:57] LABS: VENOUS BASE EXCESS -2.6 (-2.0-2.0); VENOUS HCO3 20.6 MMOL/L (23.0-27.0); VENOUS O2 SATURATION 99.3 % (60.0-80.0); VENOUS PARTIAL PRESSURE CO2 30.8 mmHg (38.0-50.0); VENOUS PARTIAL PRESSURE O2 152.4 mmHg (30.0-50.0); VENOUS PH 7.443 UNITS (7.330-7.430); VENOUS STANDARD HCO3 22.3 MMOL/L; VENOUS TOTAL CO2 21.5 MMOL/L (24.0-28.0)
[2024-06-10 04:00] VITALS: BP 129/75; TEMP 98.1; O2SAT 99
[2024-06-10 04:01] LABS: MEAN CORPUSCULAR HEMOGLOBIN 27.8 pg (27.0-33.0); MEAN CORPUSCULAR HGB CONC 32.9 g/dl (32.0-36.5); MEAN CORPUSCULAR VOLUME 84.3 fl (80.0-96.0); PLATELET COUNT, AUTOMATED 365 10^3/uL (150-450)
[2024-06-10] MEDS ORDERED: PROMETHAZINE 25MG/ML 1ML VIAL IV STA (04:07)
[2024-06-10] MEDS: ONDANSETRON 4MG 2ML VIAL IV STA (04:23)
[2024-06-10 04:27] LABS: HEMATOCRIT 33.7 % (42.0-52.0); HEMOGLOBIN 11.1 g/dl (13.5-17.5)
[2024-06-10 04:34] LABS: BLOOD UREA NITROGEN 7 MG/DL (9-23); CALCIUM LEVEL 9.1 MG/DL (8.5-10.1); CARBON DIOXIDE LEVEL 23 MMOL/L (20-31); CHLORIDE LEVEL 108 MMOL/L (98-107); CREATININE FOR GFR 0.45 MG/DL (0.70-1.30); GLOMERULAR FILTRATION RATE > 60.0 (>60); GLUCOSE, FASTING 186 MG/DL (60-100); POTASSIUM SERUM 4.2 MMOL/L (3.5-5.1); SODIUM LEVEL 137 MMOL/L (136-145)
[2024-06-10] MEDS: PROMETHAZINE 25MG/ML 1ML VIAL IV STA (05:47)
[2024-06-10] MEDS: LEVEMIR (INSULIN DETEMIR) 1 UNITS/0.01ML SC SCH (06:54)
[2024-06-10] MEDS: INSULIN LISPRO (NovoLOG) PER UNIT SC STA (06:55)
[2024-06-10] MEDS: INSULIN LISPRO (NovoLOG) PER UNIT SC SCH (07:00)
[2024-06-10 07:20] LABS: VENOUS BASE EXCESS 0.7 (-2.0-2.0); VENOUS HCO3 23.1 MMOL/L (23.0-27.0); VENOUS O2 SATURATION 99.5 % (60.0-80.0); VENOUS PARTIAL PRESSURE CO2 30.6 mmHg (38.0-50.0); VENOUS PARTIAL PRESSURE O2 198.8 mmHg (30.0-50.0); VENOUS PH 7.496 UNITS (7.330-7.430); VENOUS STANDARD HCO3 25.1 MMOL/L; VENOUS TOTAL CO2 24.1 MMOL/L (24.0-28.0)
[2024-06-10 07:56] LABS: BLOOD UREA NITROGEN 8 MG/DL (9-23); CALCIUM LEVEL 9.5 MG/DL (8.5-10.1); CARBON DIOXIDE LEVEL 23 MMOL/L (20-31); CHLORIDE LEVEL 104 MMOL/L (98-107); CREATININE FOR GFR 0.42 MG/DL (0.70-1.30); GLOMERULAR FILTRATION RATE > 60.0 (>60); GLUCOSE, FASTING 241 MG/DL (60-100); POTASSIUM SERUM 4.3 MMOL/L (3.5-5.1); SODIUM LEVEL 136 MMOL/L (136-145)
[2024-06-10 08:00] VITALS: BP 151/87; TEMP 98.4; O2SAT 99
[2024-06-10] MEDS: METOCLOPRAMIDE INJ 10MG/2ML VIAL IV SCH (09:06)
[2024-06-10] MEDS: ENOXAPARIN 40MG/0.4ML SYRINGE (J1650 PER 10MG) SC SCH (09:06)
[2024-06-10] MEDS: SCOPOLAMINE 1MG TRANSDERMAL PATCH TOP SCH (09:06)
[2024-06-10] MEDS: ONDANSETRON 4MG 2ML VIAL IV SCH (13:37)
[2024-06-10] MEDS: HALOPERIDOL LACTATE 5MG/ML VIAL IV SCH (13:37)
[2024-06-10 16:00] VITALS: BP 121/70; TEMP 98.9; O2SAT 97
[2024-06-10 19:38] LABS: BLOOD UREA NITROGEN 7 MG/DL (9-23); CALCIUM LEVEL 9.6 MG/DL (8.5-10.1); CARBON DIOXIDE LEVEL 25 MMOL/L (20-31); CHLORIDE LEVEL 104 MMOL/L (98-107); CREATININE FOR GFR 0.46 MG/DL (0.70-1.30); GLOMERULAR FILTRATION RATE > 60.0 (>60); GLUCOSE, FASTING 173 MG/DL (60-100); POTASSIUM SERUM 3.9 MMOL/L (3.5-5.1); SODIUM LEVEL 136 MMOL/L (136-145)
[2024-06-11] VITALS: BP 155/88; TEMP 98.9; O2SAT 97
[2024-06-11] MEDS: ACETAMINOPHEN 325 MG TAB PO PRN (05:56)
[2024-06-11 06:19] LABS: HEMATOCRIT 35.6 % (42.0-52.0); HEMOGLOBIN 11.7 g/dl (13.5-17.5); MEAN CORPUSCULAR HEMOGLOBIN 27.6 pg (27.0-33.0); MEAN CORPUSCULAR HGB CONC 32.9 g/dl (32.0-36.5); PLATELET COUNT, AUTOMATED 370 10^3/uL (150-450); RED BLOOD COUNT 4.24 10^6/uL (4.30-6.10)
[2024-06-11 06:56] LABS: BLOOD UREA NITROGEN 8 MG/DL (9-23); CALCIUM LEVEL 9.8 MG/DL (8.5-10.1); CARBON DIOXIDE LEVEL 25 MMOL/L (20-31); CHLORIDE LEVEL 103 MMOL/L (98-107); GLOMERULAR FILTRATION RATE > 60.0 (>60); GLUCOSE, FASTING 227 MG/DL (60-100); POTASSIUM SERUM 4.3 MMOL/L (3.5-5.1); SODIUM LEVEL 136 MMOL/L (136-145)
[2024-06-11 08:14] VITALS: BP 126/79; TEMP 98.3; O2SAT 97
[2024-06-11] MEDS ORDERED: METO10TA3 PO (09:57)
[2024-06-11] MEDS ORDERED: ONDA-83 PO (09:57)
[2024-06-11] MEDS ORDERED: TRAN1DIS4 TOP (09:57)
== END 2024-06-11 11:23 | disposition home or self-care (01) | DRG 48 ==
LOC: EDBD 08:38 → M ED 08:38 → M ED INP 08:39 → M PCU 17:30 → OBSVTOIN 06-10 12:43
PROVIDERS: ADMIT Student in an Organized Health Care Education/Training Program; ATTEND Student in an Organized Health Care Education/Training Program
DX: E11.43 Type 2 diabetes mellitus with diabetic autonomic (poly)neuropathy (principal); K31.84 Gastroparesis; R00.0 Tachycardia, unspecified; F12.188 Cannabis abuse with other cannabis-induced disorder; Z79.4 Long term (current) use of insulin; Z88.0 Allergy status to penicillin; Z88.8 Allergy status to other drugs, medicaments and biological substances

== ENCOUNTER 2024-11-06 14:48 | Inpatient (IN) | payer MEDICAID, OTHER ==
[~2024-11-06] VITALS: Ht 167.6 cm; Wt 54.7 kg
[~2024-11-06 14:48] MED LIST changes: +METO10TA3 PO; +ONDA-83 PO; +TRAN1DIS4 TOP
[2024-11-06 18:15] VITALS: BP 136/80; TEMP 99.8; O2SAT 100
[2024-11-06 19:00] VITALS: BP 130/82; O2SAT 100
[2024-11-06 19:05] LABS: BASO # 0.1 10^3/uL (0.0-0.2); BASO % 0.4 % (0.0-1.0); EOS % 0.2 % (0.0-3.0); HEMOGLOBIN 11.1 g/dl (13.5-17.5); LYMPH # 2.4 10^3/uL (1.5-5.0); LYMPH % 12.6 % (24.0-44.0); MEAN CORPUSCULAR HEMOGLOBIN 26.6 pg (27.0-33.0); MEAN CORPUSCULAR HGB CONC 31.7 g/dl (32.0-36.5); MEAN CORPUSCULAR VOLUME 83.7 fl (80.0-96.0); MONO # 1.4 10^3/uL (0.0-0.8); MONO % 7.1 % (2.0-8.0); NEUTROPHILS # 15.2 10^3/uL (1.5-8.5); NEUTROPHILS % 79.1 % (36.0-66.0); PLATELET COUNT, AUTOMATED 530 10^3/uL (150-450); RED BLOOD COUNT 4.18 10^6/uL (4.30-6.10); WHITE BLOOD COUNT 19.2 10^3/uL (4.0-10.0)
[2024-11-06 19:27] LABS: ALBUMIN 3.5 G/DL (3.2-5.2); ALKALINE PHOSPHATASE 179 U/L (40-129); ALT/SGPT 39 U/L (7.0-40); AST/SGOT 13 U/L (<34); BILIRUBIN,TOTAL 0.8 MG/DL (0.3-1.2); BLOOD UREA NITROGEN 13 MG/DL (9-23); CARBON DIOXIDE LEVEL 13 MMOL/L (20-31); CHLORIDE LEVEL 106 MMOL/L (98-107); CREATININE FOR GFR 0.52 MG/DL (0.70-1.30); GLOMERULAR FILTRATION RATE > 60.0 (>60); GLUCOSE, FASTING 314 MG/DL (60-100); MAGNESIUM LEVEL 2.2 MG/DL (1.8-2.4); PHOSPHORUS LEVEL 3.3 MG/DL (2.5-4.9); POTASSIUM SERUM 4.8 MMOL/L (3.5-5.1); SODIUM LEVEL 138 MMOL/L (136-145); TOTAL PROTEIN 7.2 G/DL (5.7-8.2)
[2024-11-06 19:30] LABS: ACETONE/KETONE > 4.50 MMOL/L (0.02-0.27)
[2024-11-06 20:00] VITALS: BP 116/65; TEMP 99; O2SAT 99
[2024-11-06] MEDS: D5W/0.45% SODIUM CHLORIDE 1,000 ML IV SCH (20:00)
[2024-11-06 20:04] LABS: HEMOGLOBIN A1c 11.2 % (4.0-6.0)
[2024-11-06] MEDS: INSULIN REGULAR IN 0.9 % NACL 100 UNIT in IV 1 EA IV SCH (20:05)
[2024-11-06 21:00] VITALS: BP 136/73; O2SAT 100
[2024-11-06] MEDS: MORPHINE 2 MG/ML 1ML VIAL IV PRN (21:01)
[2024-11-06] MEDS: INSULIN IV RATE CHANGE DOCUMENTATION ML/HR XX SCH (21:04)
[2024-11-06] MEDS ORDERED: ADME100I SC (21:10)
[2024-11-06] MEDS: cefTRIAXone SOD 1 GM in DEXTROSE 5% (D5W) ADV/MINI-BAG 50 ML IV ONE (21:13)
[2024-11-06] MEDS ORDERED: HOME MED LIST COMPLETE! XX SCH (21:15)
[2024-11-06 22:00] VITALS: BP 106/58; O2SAT 98
[2024-11-06 23:00] VITALS: BP 124/70; O2SAT 99
[2024-11-07] VITALS (13 sets, daily range): BP systolic 95–142; BP diastolic 52–91; TEMP 96.9–99.2; O2SAT 97–100
[2024-11-07 00:29] LABS: BLOOD UREA NITROGEN 13 MG/DL (9-23); CALCIUM LEVEL 9.2 MG/DL (8.5-10.1); CARBON DIOXIDE LEVEL 18 MMOL/L (20-31); CHLORIDE LEVEL 107 MMOL/L (98-107); CREATININE FOR GFR 0.51 MG/DL (0.70-1.30); GLOMERULAR FILTRATION RATE > 60.0 (>60); GLUCOSE, FASTING 178 MG/DL (60-100); PHOSPHORUS LEVEL 2.6 MG/DL (2.5-4.9); SODIUM LEVEL 139 MMOL/L (136-145)
[2024-11-07] MEDS ORDERED: GLUCOSE 4 GM CHEW PO PRN (01:50)
[2024-11-07] MEDS ORDERED: GLUCAGON INJ 1MG VIAL SC PRN (01:50)
[2024-11-07] MEDS ORDERED: DEXTROSE 50% 50ML SYRINGE IV PRN (01:50)
[2024-11-07] MEDS: LR 1,000 ML IV SCH (02:06)
[2024-11-07] MEDS: LanTUS (INSULIN GLARGINE INJ) 1 UNITS/0.01 ML SC SCH (02:06)
[2024-11-07] MEDS ORDERED: ONDANSETRON 4MG 2ML VIAL IV PRN (02:15)
[2024-11-07 04:27] LABS: BLOOD UREA NITROGEN 12 MG/DL (9-23); CALCIUM LEVEL 8.8 MG/DL (8.5-10.1); CARBON DIOXIDE LEVEL 19 MMOL/L (20-31); CHLORIDE LEVEL 107 MMOL/L (98-107); CREATININE FOR GFR 0.47 MG/DL (0.70-1.30); GLOMERULAR FILTRATION RATE > 60.0 (>60); GLUCOSE, FASTING 160 MG/DL (60-100); PHOSPHORUS LEVEL 3.8 MG/DL (2.5-4.9); POTASSIUM SERUM 4.2 MMOL/L (3.5-5.1); SODIUM LEVEL 138 MMOL/L (136-145)
[2024-11-07] MEDS: CEFEPIME HCL 2 GM in DEXTROSE 5% (D5W) ADV/MINI-BAG 50 ML IV SCH (05:07)
[2024-11-07 08:00] LABS: BLOOD UREA NITROGEN 12 MG/DL (9-23); CALCIUM LEVEL 8.7 MG/DL (8.5-10.1); CARBON DIOXIDE LEVEL 19 MMOL/L (20-31); CHLORIDE LEVEL 105 MMOL/L (98-107); CREATININE FOR GFR 0.43 MG/DL (0.70-1.30); GLOMERULAR FILTRATION RATE > 60.0 (>60); GLUCOSE, FASTING 264 MG/DL (60-100); PHOSPHORUS LEVEL 3.1 MG/DL (2.5-4.9); POTASSIUM SERUM 4.7 MMOL/L (3.5-5.1); SODIUM LEVEL 137 MMOL/L (136-145)
[2024-11-07 08:28] LABS: BASO # 0.1 10^3/uL (0.0-0.2); BASO % 0.6 % (0.0-1.0); EOS % 0.1 % (0.0-3.0); HEMATOCRIT 32.6 % (42.0-52.0); HEMOGLOBIN 10.2 g/dl (13.5-17.5); LYMPH # 2.1 10^3/uL (1.5-5.0); LYMPH % 14.9 % (24.0-44.0); MEAN CORPUSCULAR HEMOGLOBIN 26.3 pg (27.0-33.0); MEAN CORPUSCULAR HGB CONC 31.3 g/dl (32.0-36.5); MONO # 1.2 10^3/uL (0.0-0.8); MONO % 8.2 % (2.0-8.0); NEUTROPHILS # 10.9 10^3/uL (1.5-8.5); NEUTROPHILS % 75.8 % (36.0-66.0); PLATELET COUNT, AUTOMATED 492 10^3/uL (150-450); RED BLOOD COUNT 3.88 10^6/uL (4.30-6.10); WHITE BLOOD COUNT 14.3 10^3/uL (4.0-10.0)
[2024-11-07] MEDS: METOCLOPRAMIDE INJ 10MG/2ML VIAL IV PRN (08:29)
[2024-11-07] MEDS: INSULIN LISPRO (NovoLOG) PER UNIT SC SCH ×2 (08:29→21:18)
[2024-11-07] MEDS ORDERED: PANTOPRAZOLE 40MG VIAL IV SCH (09:00)
[2024-11-07] MEDS: ENOXAPARIN 40MG/0.4ML SYRINGE (J1650 PER 10MG) SC ONE (11:18)
[2024-11-07] MEDS: SODIUM BICARBONATE 325 MG TAB PO SCH (11:18)
[2024-11-07] MEDS: PERCOCET 5MG/325MG TAB PO PRN (11:19)
[2024-11-07 14:47] LABS: C REACTIVE PROTEIN QUANTITATIV 0.63 MG/DL (<1.0)
[2024-11-07 14:56] LABS: KETONE, URINE AUTO RFX 2+ mg/dL (NEGATIVE); MUCUS, URINE RFX SMALL (NEGATIVE); NITRITE, URINE AUTO RFX NEGATIVE (NEGATIVE); RBC, URINE AUTO RFX 0 /HPF (0-3); SQUAM EPITHELIAL CELL UR AURFX 0 /HPF (0-6); WBC, URINE AUTO RFX 4 /HPF (0-3)
[2024-11-07 15:06] LABS: LEUKOCYTE ESTERASE UR AUTO RFX 2+ (NEGATIVE)
[2024-11-07] MEDS: METOCLOPRAMIDE INJ 10MG/2ML VIAL IV SCH (16:11)
[2024-11-07 18:35] LABS: BLOOD UREA NITROGEN 9 MG/DL (9-23); CALCIUM LEVEL 8.6 MG/DL (8.5-10.1); CARBON DIOXIDE LEVEL 22 MMOL/L (20-31); CHLORIDE LEVEL 101 MMOL/L (98-107); CREATININE FOR GFR 0.36 MG/DL (0.70-1.30); GLOMERULAR FILTRATION RATE > 60.0 (>60); GLUCOSE, FASTING 158 MG/DL (60-100); SODIUM LEVEL 135 MMOL/L (136-145)
[2024-11-08 04:05] VITALS: BP 105/71; TEMP 98.8; O2SAT 97
[2024-11-08 06:20] LABS: BASO # 0.1 10^3/uL (0.0-0.2); BASO % 0.6 % (0.0-1.0); EOS % 0.2 % (0.0-3.0); HEMATOCRIT 30.8 % (42.0-52.0); HEMOGLOBIN 9.9 g/dl (13.5-17.5); LYMPH # 2.1 10^3/uL (1.5-5.0); MEAN CORPUSCULAR HEMOGLOBIN 26.3 pg (27.0-33.0); MEAN CORPUSCULAR HGB CONC 32.1 g/dl (32.0-36.5); MEAN CORPUSCULAR VOLUME 81.7 fl (80.0-96.0); MONO # 0.8 10^3/uL (0.0-0.8); MONO % 8.4 % (2.0-8.0); NEUTROPHILS # 6.1 10^3/uL (1.5-8.5); NEUTROPHILS % 67.5 % (36.0-66.0); PLATELET COUNT, AUTOMATED 412 10^3/uL (150-450); RED BLOOD COUNT 3.77 10^6/uL (4.30-6.10)
[2024-11-08 06:56] LABS: ALBUMIN 2.6 G/DL (3.2-5.2); ALKALINE PHOSPHATASE 135 U/L (40-129); ALT/SGPT 27 U/L (7.0-40); AST/SGOT 20 U/L (<34); BILIRUBIN,TOTAL 0.7 MG/DL (0.3-1.2); BLOOD UREA NITROGEN 8 MG/DL (9-23); CALCIUM LEVEL 8.4 MG/DL (8.5-10.1); CARBON DIOXIDE LEVEL 21 MMOL/L (20-31); CHLORIDE LEVEL 99 MMOL/L (98-107); CREATININE FOR GFR 0.43 MG/DL (0.70-1.30); GLOMERULAR FILTRATION RATE > 60.0 (>60); GLUCOSE, FASTING 276 MG/DL (60-100); POTASSIUM SERUM 4.2 MMOL/L (3.5-5.1); SODIUM LEVEL 133 MMOL/L (136-145); TOTAL PROTEIN 5.8 G/DL (5.7-8.2)
[2024-11-08] MEDS: ENOXAPARIN 40MG/0.4ML SYRINGE (J1650 PER 10MG) SC SCH (08:33)
[2024-11-08] MEDS ORDERED: LEVO1TAB40 PO (10:49)
[2024-11-08] MEDS ORDERED: REGL10TA6 PO (10:49)
== END 2024-11-08 11:32 | disposition home or self-care (01) | DRG 720 ==
LOC: M ICU 18:18 → M MSPAV 11-07 16:01
PROVIDERS: ADMIT Internal Medicine Pulmonary Disease; ATTEND Internal Medicine
DX: A41.9 Sepsis, unspecified organism (principal); E10.10 Type 1 diabetes mellitus with ketoacidosis without coma; N13.6 Pyonephrosis; N20.1 Calculus of ureter; F12.90 Cannabis use, unspecified, uncomplicated; Z79.899 Other long term (current) drug therapy; Z88.0 Allergy status to penicillin; Z88.8 Allergy status to other drugs, medicaments and biological substances; M54.50 Low back pain, unspecified; R65.20 Severe sepsis without septic shock

== ENCOUNTER 2025-04-07 20:34 | Inpatient (IN) | payer OTHER ==
[~2025-04-07] VITALS: Ht 172.7 cm; Wt 56.0 kg
[~2025-04-07 20:34] MED LIST changes: -GLUC1KIT; +GLUC1VIA14; +LEVO1TAB40 PO
[2025-04-07] MEDS: NS (Normal Saline) 0.9% 1,000 ML IV ONE (21:12)
[2025-04-07 21:26] LABS: VENOUS BASE EXCESS -26.9 (-2.0-2.0); VENOUS HCO3 4.3 MMOL/L (23.0-27.0); VENOUS O2 SATURATION 90.3 % (60.0-80.0); VENOUS PARTIAL PRESSURE CO2 21.2 mmHg (38.0-50.0); VENOUS PARTIAL PRESSURE O2 74.9 mmHg (30.0-50.0); VENOUS PH 6.927 UNITS (7.330-7.430); VENOUS STANDARD HCO3 6.0 MMOL/L; VENOUS TOTAL CO2 5.0 MMOL/L (24.0-28.0)
[2025-04-07 21:36] LABS: PLATELET COUNT, AUTOMATED 547 10^3/uL (150-450)
[2025-04-07 21:59] LABS: LYMPHOCYTES 13 % (16-44); MONOCYTES 8 % (0-5); NEUTROPHILS 79 % (28-66)
[2025-04-07 22:00] LABS: PLATELET ESTIMATE INCREASED (NORMAL)
[2025-04-07] MEDS ORDERED: HOME MED LIST COMPLETE! XX SCH (22:15)
[2025-04-07] MEDS: CEFEPIME HCL 2 GM in DEXTROSE 5% (D5W) ADV/MINI-BAG 50 ML IV ONE (22:31)
[2025-04-07] MEDS: NS (Normal Saline) 0.9% 1,000 ML IV SCH (22:31)
[2025-04-07 22:41] LABS: KETONE, URINE AUTO RFX 2+ mg/dL (NEGATIVE); LEUKOCYTE ESTERASE UR AUTO RFX NEGATIVE (NEGATIVE); MUCUS, URINE RFX SMALL (NEGATIVE); NITRITE, URINE AUTO RFX NEGATIVE (NEGATIVE); RBC, URINE AUTO RFX 1 /HPF (0-3); SQUAM EPITHELIAL CELL UR AURFX 0 /HPF (0-6); WBC, URINE AUTO RFX 0 /HPF (0-3)
[2025-04-07 22:42] LABS: OSMOLALITY SERUM 305 MOSM/KG (275-295)
[2025-04-07 22:57] LABS: ACETONE/KETONE 4.30 MMOL/L (0.02-0.27)
[2025-04-07 23:05] LABS: ALT/SGPT 20 U/L (7.0-40); AST/SGOT 15 U/L (<34); CALCIUM LEVEL 8.1 MG/DL (8.5-10.1); CARBON DIOXIDE LEVEL < 10.0 MMOL/L (20-31); CHLORIDE LEVEL 111 MMOL/L (98-107); CREATININE FOR GFR 0.70 MG/DL (0.70-1.30); GLOMERULAR FILTRATION RATE > 90.0 (>60); POTASSIUM SERUM 5.3 MMOL/L (3.5-5.1); SODIUM LEVEL 138 MMOL/L (136-145)
[2025-04-07] MEDS ORDERED: INSULIN IV RATE CHANGE DOCUMENTATION ML/HR XX SCH (23:15)
[2025-04-07] MEDS ORDERED: ISOVUE-370 76% 100 ML VIAL As Ordered ONE (23:20)
[2025-04-07] MEDS: D5W/0.45% SODIUM CHLORIDE 1,000 ML IV SCH (23:33)
[2025-04-07] MEDS: DEXTROSE 50% 50 ML SYRINGE IV STA (23:56)
[2025-04-08] VITALS (14 sets, daily range): BP systolic 124–149; BP diastolic 68–80; TEMP 97.3–99.1; O2SAT 99–100
[2025-04-08] MEDS: INSULIN REGULAR IN 0.9 % NACL 100 UNIT in IV 1 EA IV SCH (00:01)
[2025-04-08] MEDS: MORPHINE 4 MG/ML 1 ML VIAL IV ONE (00:26)
[2025-04-08 03:21] LABS: VENOUS BASE EXCESS -15.8 (-2.0-2.0); VENOUS HCO3 10.3 MMOL/L (23.0-27.0); VENOUS O2 SATURATION 98.6 % (60.0-80.0); VENOUS PARTIAL PRESSURE CO2 25.8 mmHg (38.0-50.0); VENOUS PARTIAL PRESSURE O2 118.6 mmHg (30.0-50.0); VENOUS PH 7.220 UNITS (7.330-7.430); VENOUS STANDARD HCO3 12.5 MMOL/L; VENOUS TOTAL CO2 11.1 MMOL/L (24.0-28.0)
[2025-04-08 04:05] LABS: CALCIUM LEVEL 8.2 MG/DL (8.5-10.1); CARBON DIOXIDE LEVEL 11 MMOL/L (20-31); CHLORIDE LEVEL 109 MMOL/L (98-107); CREATININE FOR GFR 0.57 MG/DL (0.70-1.30); GLOMERULAR FILTRATION RATE > 90.0 (>60); POTASSIUM SERUM 3.9 MMOL/L (3.5-5.1); SODIUM LEVEL 134 MMOL/L (136-145)
[2025-04-08] MEDS ORDERED: GLUCAGON INJ 1 MG VIAL SC PRN (05:40)
[2025-04-08] MEDS ORDERED: GLUCOSE 4 GM CHEW PO PRN (05:40)
[2025-04-08] MEDS ORDERED: DEXTROSE 50% 50 ML SYRINGE IV PRN (05:40)
[2025-04-08] MEDS: INSULIN LISPRO (NovoLOG) PER UNIT SC SCH (06:00)
[2025-04-08] MEDS: INSULIN LISPRO (NovoLOG) PER UNIT SC STA (06:28)
[2025-04-08 08:05] LABS: CALCIUM LEVEL 8.0 MG/DL (8.5-10.1); CARBON DIOXIDE LEVEL 14 MMOL/L (20-31); CHLORIDE LEVEL 109 MMOL/L (98-107); CREATININE FOR GFR 0.55 MG/DL (0.70-1.30); GLOMERULAR FILTRATION RATE > 90.0 (>60); POTASSIUM SERUM 3.3 MMOL/L (3.5-5.1); SODIUM LEVEL 135 MMOL/L (136-145)
[2025-04-08] MEDS: LR 1,000 ML IV SCH (08:25)
[2025-04-08] MEDS ORDERED: KCL 20MEQ IN D5/0.45NS 1000ML 1,000 ML IV SCH (08:55)
[2025-04-08] MEDS: PANTOPRAZOLE 40MG VIAL IV SCH (09:08)
[2025-04-08] MEDS: ENOXAPARIN 40 MG/0.4 ML SYRINGE (J1650 PER 10MG) SC SCH (09:09)
[2025-04-08 09:18] LABS: VENOUS BASE EXCESS -14.3 (-2.0-2.0); VENOUS HCO3 9.8 MMOL/L (23.0-27.0); VENOUS O2 SATURATION 99.1 % (60.0-80.0); VENOUS PARTIAL PRESSURE CO2 19.5 mmHg (38.0-50.0); VENOUS PARTIAL PRESSURE O2 159.3 mmHg (30.0-50.0); VENOUS PH 7.318 UNITS (7.330-7.430); VENOUS STANDARD HCO3 13.5 MMOL/L; VENOUS TOTAL CO2 10.4 MMOL/L (24.0-28.0)
[2025-04-08 09:22] LABS: BASO # 0.0 10^3/uL (0.0-0.2); BASO % 0.2 % (0.0-1.0); EOS # 0.0 10^3/uL (0.0-0.5); EOS % 0.2 % (0.0-3.0); LYMPH # 1.8 10^3/uL (1.5-5.0); LYMPH % 9.6 % (24.0-44.0); MONO # 1.6 10^3/uL (0.0-0.8); MONO % 8.3 % (2.0-8.0); NEUTROPHILS # 15.3 10^3/uL (1.5-8.5); NEUTROPHILS % 80.4 % (36.0-66.0); PLATELET COUNT, AUTOMATED 421 10^3/uL (150-450)
[2025-04-08] MEDS: CALCIUM GLUCONATE 1,000 MG in DEXTROSE 5% (D5W) MINI-BAG PLU 100 ML IV ONE (09:33)
[2025-04-08] MEDS: MORPHINE 2 MG/ML 1 ML VIAL IV ONE (09:33)
[2025-04-08 09:48] LABS: CALCIUM LEVEL 8.5 MG/DL (8.5-10.1); CARBON DIOXIDE LEVEL 11 MMOL/L (20-31); CHLORIDE LEVEL 111 MMOL/L (98-107); CREATININE FOR GFR 0.52 MG/DL (0.70-1.30); GLOMERULAR FILTRATION RATE > 90.0 (>60); MAGNESIUM LEVEL 1.9 MG/DL (1.8-2.4); POTASSIUM SERUM 3.7 MMOL/L (3.5-5.1); SODIUM LEVEL 136 MMOL/L (136-145)
[2025-04-08] MEDS: KCL 10MEQ/100ML SWI (KRUN) 10 MEQ in IV 1 EA IV SCH (11:07)
[2025-04-08] MEDS: LanTUS (INSULIN GLARGINE INJ) 1 UNITS/0.01 ML SC ONE ×2 (11:07→21:36)
[2025-04-08 12:24] LABS: VENOUS BASE EXCESS -15.6 (-2.0-2.0); VENOUS HCO3 10.1 MMOL/L (23.0-27.0); VENOUS O2 SATURATION 99.5 % (60.0-80.0); VENOUS PARTIAL PRESSURE CO2 23.8 mmHg (38.0-50.0); VENOUS PARTIAL PRESSURE O2 174.1 mmHg (30.0-50.0); VENOUS PH 7.244 UNITS (7.330-7.430); VENOUS STANDARD HCO3 12.5 MMOL/L; VENOUS TOTAL CO2 10.8 MMOL/L (24.0-28.0)
[2025-04-08 13:02] LABS: CALCIUM LEVEL 8.2 MG/DL (8.5-10.1); CARBON DIOXIDE LEVEL 11 MMOL/L (20-31); CHLORIDE LEVEL 105 MMOL/L (98-107); CREATININE FOR GFR 0.52 MG/DL (0.70-1.30); GLOMERULAR FILTRATION RATE > 90.0 (>60); POTASSIUM SERUM 4.0 MMOL/L (3.5-5.1); SODIUM LEVEL 131 MMOL/L (136-145)
[2025-04-08] MEDS: MORPHINE 2 MG/ML 1 ML VIAL IV PRN (17:22)
[2025-04-08 21:12] LABS: VENOUS BASE EXCESS -8.7 (-2.0-2.0); VENOUS HCO3 15.6 MMOL/L (23.0-27.0); VENOUS O2 SATURATION 98.1 % (60.0-80.0); VENOUS PARTIAL PRESSURE CO2 28.6 mmHg (38.0-50.0); VENOUS PARTIAL PRESSURE O2 98.5 mmHg (30.0-50.0); VENOUS PH 7.354 UNITS (7.330-7.430); VENOUS STANDARD HCO3 17.5 MMOL/L; VENOUS TOTAL CO2 16.5 MMOL/L (24.0-28.0)
[2025-04-08 21:55] LABS: CALCIUM LEVEL 8.8 MG/DL (8.5-10.1); CARBON DIOXIDE LEVEL 18 MMOL/L (20-31); CHLORIDE LEVEL 105 MMOL/L (98-107); CREATININE FOR GFR 0.50 MG/DL (0.70-1.30); GLOMERULAR FILTRATION RATE > 90.0 (>60); POTASSIUM SERUM 3.4 MMOL/L (3.5-5.1); SODIUM LEVEL 137 MMOL/L (136-145)
[2025-04-09 04:47] LABS: VENOUS BASE EXCESS -3.6 (-2.0-2.0); VENOUS HCO3 19.5 MMOL/L (23.0-27.0); VENOUS O2 SATURATION 99.4 % (60.0-80.0); VENOUS PARTIAL PRESSURE CO2 28.7 mmHg (38.0-50.0); VENOUS PARTIAL PRESSURE O2 161.3 mmHg (30.0-50.0); VENOUS PH 7.450 UNITS (7.330-7.430); VENOUS STANDARD HCO3 21.5 MMOL/L; VENOUS TOTAL CO2 20.4 MMOL/L (24.0-28.0)
[2025-04-09 04:53] LABS: BASO # 0.0 10^3/uL (0.0-0.2); BASO % 0.3 % (0.0-1.0); EOS # 0.0 10^3/uL (0.0-0.5); EOS % 0.3 % (0.0-3.0); LYMPH # 2.0 10^3/uL (1.5-5.0); LYMPH % 19.6 % (24.0-44.0); MONO # 0.7 10^3/uL (0.0-0.8); MONO % 7.0 % (2.0-8.0); NEUTROPHILS # 7.5 10^3/uL (1.5-8.5); NEUTROPHILS % 72.4 % (36.0-66.0); PLATELET COUNT, AUTOMATED 344 10^3/uL (150-450)
[2025-04-09 05:29] LABS: ALT/SGPT 14 U/L (7.0-40); AST/SGOT 9 U/L (<34); CALCIUM LEVEL 8.6 MG/DL (8.5-10.1); CARBON DIOXIDE LEVEL 22 MMOL/L (20-31); CHLORIDE LEVEL 105 MMOL/L (98-107); CREATININE FOR GFR 0.49 MG/DL (0.70-1.30); GLOMERULAR FILTRATION RATE > 90.0 (>60); MAGNESIUM LEVEL 1.6 MG/DL (1.8-2.4); PHOSPHORUS LEVEL 1.4 MG/DL (2.5-4.9); POTASSIUM SERUM 3.2 MMOL/L (3.5-5.1); SODIUM LEVEL 138 MMOL/L (136-145)
[2025-04-09 05:30] VITALS: TEMP 99.7
[2025-04-09 05:31] VITALS: BP 135/79; TEMP 98.1; O2SAT 99
[2025-04-09 07:42] VITALS: BP 137/84; TEMP 97.7; O2SAT 100
[2025-04-09] MEDS: MAG SULF 1GM/100ML (MAG RUN) 1 GM in IV 1 EA IV ONE (08:14)
[2025-04-09] MEDS: LanTUS (INSULIN GLARGINE INJ) 1 UNITS/0.01 ML SC SCH (08:15)
[2025-04-09] MEDS: POTASSIUM CHLORIDE 10MEQ SR TABLET PO ONE (08:16)
[2025-04-09] MEDS: ACETAMINOPHEN 500 MG TAB PO ONE (09:09)
[2025-04-09] MEDS ORDERED: MAG SULF 1GM/100ML (MAG RUN) 1 GM in IV 1 EA IV ONE (10:00)
[2025-04-09] MEDS: POTASSIUM CHLORIDE 10MEQ SR TABLET PO SCH (10:09)
[2025-04-09] MEDS: INSULIN LISPRO (NovoLOG) PER UNIT SC SCH ×2 (12:13→21:00)
[2025-04-09 13:41] VITALS: BP_SYST 105; BP_SYST 125; BP_DIAS 56; BP_DIAS 66; TEMP 96.8; TEMP 97.3; O2SAT 97; O2SAT 99
[2025-04-09 21:31] VITALS: BP 138/81; TEMP 97.9; O2SAT 95
[2025-04-10 04:24] LABS: PLATELET COUNT, AUTOMATED 337 10^3/uL (150-450)
[2025-04-10 04:42] VITALS: BP 112/62; TEMP 97.3; O2SAT 95
[2025-04-10 04:51] LABS: CALCIUM LEVEL 8.5 MG/DL (8.5-10.1); CARBON DIOXIDE LEVEL 26 MMOL/L (20-31); CHLORIDE LEVEL 101 MMOL/L (98-107); CREATININE FOR GFR 0.53 MG/DL (0.70-1.30); GLOMERULAR FILTRATION RATE > 90.0 (>60); MAGNESIUM LEVEL 2.1 MG/DL (1.8-2.4); POTASSIUM SERUM 3.4 MMOL/L (3.5-5.1); SODIUM LEVEL 139 MMOL/L (136-145)
[2025-04-10] MEDS: SENNOSIDES/DOCUSATE SODIUM 8.6 MG/50MG TAB PO ONE (12:37)
[2025-04-10] MEDS: MIRALAX *UNIT DOSE* 17 GM PACKET PO SCH (12:37)
== END 2025-04-10 16:16 | disposition home or self-care (01) | DRG 420 ==
LOC: M ED 20:34 → M ED INP 04-08 05:38 → M ICU 04-08 06:22
PROVIDERS: ADMIT Internal Medicine; ATTEND Internal Medicine
DX: E10.10 Type 1 diabetes mellitus with ketoacidosis without coma (principal); E83.42 Hypomagnesemia; D72.829 Elevated white blood cell count, unspecified; E87.6 Hypokalemia; F12.188 Cannabis abuse with other cannabis-induced disorder; Z79.4 Long term (current) use of insulin; Z88.0 Allergy status to penicillin; Z88.8 Allergy status to other drugs, medicaments and biological substances

== ENCOUNTER 2025-04-26 12:40 | Emergency (ER) | payer MEDICAID, OTHER ==
[~2025-04-26] VITALS: Ht 167.6 cm; Wt 54.5 kg
[~2025-04-26 12:40] MED LIST changes: -IBUP-1022 PO; +IBUP600T42 PO
[2025-04-26 12:48] VITALS: TEMP 98.3
[2025-04-26 13:31] LABS: VENOUS BASE EXCESS -5.3 (-2.0-2.0); VENOUS HCO3 18.7 MMOL/L (23.0-27.0); VENOUS O2 SATURATION 86.7 % (60.0-80.0); VENOUS PARTIAL PRESSURE CO2 31.6 mmHg (38.0-50.0); VENOUS PARTIAL PRESSURE O2 51.2 mmHg (30.0-50.0); VENOUS PH 7.389 UNITS (7.330-7.430); VENOUS STANDARD HCO3 19.9 MMOL/L; VENOUS TOTAL CO2 19.6 MMOL/L (24.0-28.0)
[2025-04-26 13:39] LABS: BASO # 0.0 10^3/uL (0.0-0.2); BASO % 0.2 % (0.0-1.0); EOS # 0.0 10^3/uL (0.0-0.5); EOS % 0.0 % (0.0-3.0); LYMPH # 1.6 10^3/uL (1.5-5.0); LYMPH % 9.2 % (24.0-44.0); MONO # 0.7 10^3/uL (0.0-0.8); MONO % 3.9 % (2.0-8.0); NEUTROPHILS # 14.6 10^3/uL (1.5-8.5); NEUTROPHILS % 86.1 % (36.0-66.0); PLATELET COUNT, AUTOMATED 718 10^3/uL (150-450)
[2025-04-26] MEDS: HALOPERIDOL LACTATE 5 MG/ML VIAL IV ONE (13:39)
[2025-04-26] MEDS: DEXTROSE 50% 50 ML SYRINGE IV STA (13:39)
[2025-04-26] MEDS: NS (Normal Saline) 0.9% 1,000 ML IV ONE ×2 (13:47→14:59)
[2025-04-26 14:02] LABS: ALT/SGPT 48 U/L (7.0-40); AST/SGOT 23 U/L (<34); CALCIUM LEVEL 9.3 MG/DL (8.5-10.1); CARBON DIOXIDE LEVEL 19 MMOL/L (20-31); CHLORIDE LEVEL 110 MMOL/L (98-107); CREATININE FOR GFR 0.63 MG/DL (0.70-1.30); GLOMERULAR FILTRATION RATE > 90.0 (>60); MAGNESIUM LEVEL 2.2 MG/DL (1.8-2.4); POTASSIUM SERUM 3.6 MMOL/L (3.5-5.1); SODIUM LEVEL 147 MMOL/L (136-145)
[2025-04-26 14:03] LABS: ACETONE/KETONE 1.86 MMOL/L (0.02-0.27)
[2025-04-26 14:04] LABS: OSMOLALITY SERUM 299 MOSM/KG (275-295)
[2025-04-26 14:32] LABS: ESTIMATED AVERAGE GLUCOSE 249.0 MG/DL (60-110)
[2025-04-26] MEDS ORDERED: HOME MED LIST COMPLETE! XX SCH (16:10)
[2025-04-26 16:28] LABS: KETONE, URINE AUTO RFX 2+ mg/dL (NEGATIVE); LEUKOCYTE ESTERASE UR AUTO RFX NEGATIVE (NEGATIVE); MUCUS, URINE RFX SMALL (NEGATIVE); NITRITE, URINE AUTO RFX NEGATIVE (NEGATIVE); RBC, URINE AUTO RFX 2 /HPF (0-3); SQUAM EPITHELIAL CELL UR AURFX 0 /HPF (0-6); TRANSITIONAL EPITHELIAL AU RFX <1 /HPF; WBC, URINE AUTO RFX 2 /HPF (0-3)
[2025-04-26 16:31] LABS: AMPHETAMINES LEVEL URINE NEGATIVE (NEGATIVE); BARBITURATES URINE NEGATIVE (NEGATIVE); BENZODIAZEPINES URINE NEGATIVE (NEGATIVE); COCAINE METABOLITE URINE NEGATIVE (NEGATIVE); METHADONE URINE NEGATIVE (NEGATIVE); OPIATES URINE NEGATIVE (NEGATIVE); PHENCYCLIDINE URINE NEGATIVE (NEGATIVE)
[2025-04-26 16:32] LABS: CANNABINOIDS URINE POSITIVE (NEGATIVE)
[2025-04-26 17:30] VITALS: BP 141/85; O2SAT 100
== END 2025-04-26 18:44 | disposition home or self-care (01) ==
LOC: M ED 12:40 → EDBD 12:40 → M ED 18:44
DX: E10.649 Type 1 diabetes mellitus with hypoglycemia without coma (principal); F12.188 Cannabis abuse with other cannabis-induced disorder; Z79.4 Long term (current) use of insulin; Z88.0 Allergy status to penicillin; Z88.8 Allergy status to other drugs, medicaments and biological substances
CPT/HCPCS: 80048; 80076; 80307; 81001; 82010; 82803; 83036; 83690; 83735; 83930; 85025; 93005; 96361; 96374; 96375; 99284; J1630

== ENCOUNTER 2025-06-03 16:05 | Emergency (ER) | payer OTHER ==
[2025-06-03 16:10] VITALS: TEMP 96.6
[2025-06-03 16:34] LABS: VENOUS BASE EXCESS -4.9 (-2.0-2.0); VENOUS HCO3 18.4 MMOL/L (23.0-27.0); VENOUS O2 SATURATION 99.5 % (60.0-80.0); VENOUS PARTIAL PRESSURE CO2 28.7 mmHg (38.0-50.0); VENOUS PARTIAL PRESSURE O2 181.9 mmHg (30.0-50.0); VENOUS PH 7.424 UNITS (7.330-7.430); VENOUS STANDARD HCO3 20.4 MMOL/L; VENOUS TOTAL CO2 19.2 MMOL/L (24.0-28.0)
[2025-06-03 16:41] LABS: BASO # 0.1 10^3/uL (0.0-0.2); BASO % 0.6 % (0.0-1.0); EOS # 0.0 10^3/uL (0.0-0.5); EOS % 0.1 % (0.0-3.0); LYMPH # 1.2 10^3/uL (1.5-5.0); LYMPH % 10.8 % (24.0-44.0); MONO # 0.3 10^3/uL (0.0-0.8); MONO % 2.9 % (2.0-8.0); NEUTROPHILS # 9.7 10^3/uL (1.5-8.5); NEUTROPHILS % 85.0 % (36.0-66.0); PLATELET COUNT, AUTOMATED 543 10^3/uL (150-450)
[2025-06-03 17:01] LABS: ALT/SGPT 37 U/L (7.0-40); AST/SGOT 34 U/L (<34)
[2025-06-03 17:02] LABS: ACETONE/KETONE 1.65 MMOL/L (0.02-0.27)
[2025-06-03 17:28] LABS: ESTIMATED AVERAGE GLUCOSE 209.0 MG/DL (60-110)
[2025-06-03 17:30] LABS: OSMOLALITY SERUM 302 MOSM/KG (275-295)
[2025-06-03] MEDS: NS 0.9% IV ONE (17:40)
[2025-06-03] MEDS: ONDANSETRON 4MG 2ML VIAL IV ONE (17:40)
[2025-06-03] MEDS: [UNRECOGNIZED DRUG - OTHER] IV ONE (17:40)
[2025-06-03 17:56] LABS: CALCIUM LEVEL 9.1 MG/DL (8.5-10.1); CARBON DIOXIDE LEVEL 18 MMOL/L (20-31); CHLORIDE LEVEL 99 MMOL/L (98-107); CK-MB VALUE MASS < 1.0 NG/ML (<3.6); CREATININE FOR GFR 0.56 MG/DL (0.70-1.30); GLOMERULAR FILTRATION RATE > 90.0 (>60); POTASSIUM SERUM 4.6 MMOL/L (3.5-5.1); SODIUM LEVEL 137 MMOL/L (136-145)
[2025-06-03 18:01] LABS: CPK CREATINE PHOSPHOKINASE 53 U/L (46-171)
[2025-06-03 18:06] LABS: VENOUS BASE EXCESS -3.1 (-2.0-2.0); VENOUS HCO3 19.8 MMOL/L (23.0-27.0); VENOUS O2 SATURATION 90.8 % (60.0-80.0); VENOUS PARTIAL PRESSURE CO2 28.6 mmHg (38.0-50.0); VENOUS PARTIAL PRESSURE O2 59.9 mmHg (30.0-50.0); VENOUS PH 7.458 UNITS (7.330-7.430); VENOUS STANDARD HCO3 21.8 MMOL/L; VENOUS TOTAL CO2 20.7 MMOL/L (24.0-28.0)
[2025-06-03 18:34] LABS: CK-MB VALUE MASS < 1.0 NG/ML (<3.6)
[2025-06-03 18:35] LABS: FREE T4 1.04 NG/DL (0.89-1.76)
[2025-06-03 18:35] LABS: CPK CREATINE PHOSPHOKINASE 44 U/L (46-171)
[2025-06-03 19:52] VITALS: BP 160/98; O2SAT 97
== END 2025-06-03 19:55 | disposition home or self-care (01) ==
LOC: M ED 16:05
DX: E86.0 Dehydration (principal); E10.10 Type 1 diabetes mellitus with ketoacidosis without coma; E03.9 Hypothyroidism, unspecified; J45.909 Unspecified asthma, uncomplicated; K21.9 Gastro-esophageal reflux disease without esophagitis; G40.909 Epilepsy, unspecified, not intractable, without status epilepticus; F12.10 Cannabis abuse, uncomplicated; Z90.49 Acquired absence of other specified parts of digestive tract; Z88.0 Allergy status to penicillin; Z88.8 Allergy status to other drugs, medicaments and biological substances; Z79.899 Other long term (current) drug therapy; Z53.9 Procedure and treatment not carried out, unspecified reason
CPT/HCPCS: 74177; 80047; 80048; 80076; 82010; 82550; 82553; 82803; 83036; 83605; 83690; 83930; 84439; 84443; 84484; 85025; 93005; 93041; 94760; 96374; 96375; 99285; J2405; J2765

== ENCOUNTER 2025-06-04 00:47 | Emergency (ER) | payer OTHER ==
[~2025-06-04] VITALS: Ht 172.7 cm; Wt 57.4 kg
[2025-06-04 01:32] LABS: VENOUS BASE EXCESS -0.2 (-2.0-2.0); VENOUS HCO3 24.0 MMOL/L (23.0-27.0); VENOUS O2 SATURATION 42.5 % (60.0-80.0); VENOUS PARTIAL PRESSURE CO2 37.8 mmHg (38.0-50.0); VENOUS PARTIAL PRESSURE O2 24.7 mmHg (30.0-50.0); VENOUS PH 7.421 UNITS (7.330-7.430); VENOUS STANDARD HCO3 23.2 MMOL/L; VENOUS TOTAL CO2 25.2 MMOL/L (24.0-28.0)
[2025-06-04 01:39] LABS: BASO # 0.0 10^3/uL (0.0-0.2); BASO % 0.3 % (0.0-1.0); EOS # 0.0 10^3/uL (0.0-0.5); EOS % 0.0 % (0.0-3.0); LYMPH # 1.4 10^3/uL (1.5-5.0); LYMPH % 9.6 % (24.0-44.0); MONO # 0.6 10^3/uL (0.0-0.8); MONO % 4.2 % (2.0-8.0); NEUTROPHILS # 12.7 10^3/uL (1.5-8.5); NEUTROPHILS % 85.5 % (36.0-66.0); PLATELET COUNT, AUTOMATED 639 10^3/uL (150-450)
[2025-06-04 02:24] LABS: ALT/SGPT 34 U/L (7.0-40); AST/SGOT 17 U/L (<34); CALCIUM LEVEL 9.6 MG/DL (8.5-10.1); CARBON DIOXIDE LEVEL 24 MMOL/L (20-31); CHLORIDE LEVEL 103 MMOL/L (98-107); CREATININE FOR GFR 0.65 MG/DL (0.70-1.30); GLOMERULAR FILTRATION RATE > 90.0 (>60); POTASSIUM SERUM 3.8 MMOL/L (3.5-5.1); SODIUM LEVEL 141 MMOL/L (136-145)
[2025-06-04] MEDS: HALOPERIDOL LACTATE 5 MG/ML VIAL IV ONE (03:41)
[2025-06-04] MEDS: KETOROLAC 30 MG/ML 1 ML VIAL IV ONE (03:42)
[2025-06-04] MEDS: NS (Normal Saline) 0.9% 1,000 ML IV ONE (03:42)
[2025-06-04] MEDS ORDERED: HOME MED LIST COMPLETE! XX SCH (04:45)
[2025-06-04 10:00] VITALS: BP 125/71; TEMP 98.5; O2SAT 98
== END 2025-06-04 10:05 | disposition home or self-care (01) ==
LOC: M ED 00:47
DX: R11.2 Nausea with vomiting, unspecified (principal); F12.90 Cannabis use, unspecified, uncomplicated; E10.9 Type 1 diabetes mellitus without complications; Z88.0 Allergy status to penicillin; Z88.8 Allergy status to other drugs, medicaments and biological substances; Z79.4 Long term (current) use of insulin
CPT/HCPCS: 80048; 80076; 82150; 82803; 83605; 83690; 85025; 96361; 96374; 96375; 99285; J1630; J1885